=== PATIENT | female | born 1985 | race Caucasian/White ===

== ENCOUNTER 2016-12-09 22:12 | Emergency (ER) | payer MEDICAID ==
[~2016-12-09] VITALS: Ht 175.3 cm; Wt 92.0 kg
[2016-12-09 22:14] VITALS: BP 168/83; PULSE 108; RESP 16; TEMP 99.1; O2SAT 100
[2016-12-09] MEDS ORDERED: SODIUM CHLOR 0.9% 1000 ML INJ 1,000 ML IV ONE ×2 (23:00→23:45)
--- NOTE | 2016-12-09 23:03 | PD ---
HPI Chief Complaint: Abdominal Pain Time Seen by Provider: 22:56 Travel History International Travel<30 days: No Contact w/Intl Traveler<30days: No Traveled to known affect area: No History of Present Illness HPI The patient is a 31 year old female with two prior abortions who presents to the [facility] emergency department with a history of abdominal pain associated with diarrhea that began 3 days ago. The patient reports that she is . She reports that her last menstrual cycle was October 15, 2016. She has an appointment with her new ELECTRONIC NEWS GATHERING EDITOR scheduled for January 04. She reports that she took her first positive test on November 29. The patient reports that she's had N/V x1 today. She reports that she's had diarrhea- tntc. It is yellow in color. She denies having any mucus in her stool or blood in her stool. The patient denies having any known sick contacts. She denies any antibiotic use in the last 3 months. She denies any foreign travel. The patient denies any recent fevers, cough, congestion, neck pain, chest pain, shortness of breath, urinary symptoms, or neurologic symptoms. [facility] Past Medical History Narrative Medical The patient's past medical history is significant for hypertension and asthma. Asthma: Yes Cardiovascular Problems: Yes (HTN) Diminished Hearing: No Hypertension: Yes Respiratory: Yes (ASTHMA) ?: LMP: 10/15/16 Past Surgical History Narrative Surgical The patient's past surgical history is reportedly none. Social History Alcohol Use: No Tobacco Use: No Substance Use: No Allergies-Medications (Allergen,Severity, Reaction): Coded Allergies: No Known Allergies (Unverified , 12/09/16) Reported Meds & Prescriptions Reported Meds & Active Scripts Active No Active Prescriptions or Reported Medications Review of Systems Except as stated in HPI: all other systems reviewed are Neg General / Constitutional: No: Fever Eyes: No: Visual changes HENT: No: Headaches Cardiovascular: No: Chest Pain or Discomfort Respiratory: No: Shortness of Breath Gastrointestinal: Positive: Nausea, Vomiting, Diarrhea, Abdominal Pain, Changes in Bowel Habits, Loss of Appetite, No: Hematemesis, Hematochezia, Indigestion Genitourinary: Positive: Pelvic Pain, No: Dysuria, Discharge, Vaginal Bleeding Musculoskeletal: No: Pain Skin: No Rash Neurologic: No: Weakness Psychiatric: No: Depression Endocrine: No: Polydipsia Hematologic/Lymphatic: No: Easy Bruising Physical Exam Narrative General: The patient is well-developed well-nourished female who is uncomfortable appearing on arrival, holding her lower abdomen. Head and Neck exam: Head is normocephalic atraumatic. Eyes: Pupils are equal round and reactive to light. Nose: Midline septum with pink mucous membranes Mouth: Dentition unremarkable. Moist mucus membranes. Posterior oropharynx is not erythematous. No tonsillar hypertrophy. Uvula midline. Airway patent. Neck: No palpable lymphadenopathy. No nuchal rigidity. No thyromegaly. Cardiovascular: Regular rate and rhythm without murmurs, gallops, or rubs. Lungs: Clear to auscultation bilaterally. No wheezes, rhonchi, or rales. Abdomen: Soft, with tenderness on palpation of the right upper and right lower quadrant of the abdomen. The patient had a positive Bro sign. The patient had normal bowel sounds are audible. The patient denies any tenderness on palpation along the left upper and lower quadrant. Extremities: No clubbing, cyanosis, or edema. 2+ pulses in all 4 extremities. Back: No spinous process tenderness to palpation. No costovertebral angle tenderness to palpation. Neurologic Exam: Grossly nonfocal. Skin Exam: No rash noted. Intact skin that is warm and dry. Gynecologic exam: The patient was placed in the dorsal lithotomy position. Her external genitalia were examined. She had no evidence of rash or lesions. The speculum was placed into her vagina and the cervix was identified. She had a white discharge noted. No cervical friability. On Bimanual exam: she has no cervical motion tenderness. No adnexal tenderness or prominence noted on palpation. No uterine tenderness or enlargement noted on palpation. Data Data Last Documented VS Vital Signs Date Time Temp Pulse Resp B/P Pulse Ox O2 Delivery O2 Flow Rate FiO2 12/09/16 23:14 18 12/09/16 22:14 99.1 108 168/83 100 Orders Beta Hcg (Quant/Titer) (12/09/16 22:58) Complete Blood Count With Diff (12/09/16 22:58) Comprehensive Metabolic Panel (12/09/16 22:58) Gc And Chlamydia Pcr (12/09/16 22:58) Complete Rh (12/09/16 22:58) Wet Prep Profile (12/09/16 22:58) Urinalysis - C+S If Indicated (12/09/16 22:58) Iv Access Insert/Monitor (12/09/16 22:58) Ecg Monitoring (12/09/16 22:58) Ed Urine Pregnancytest Poc (12/09/16 22:58) Sodium Chlor 0.9% 1000 Ml Inj (Ns 1000 M (12/09/16 23:00) Ondansetron Inj (Zofran Inj) (12/09/16 23:45) Sodium Chlor 0.9% 1000 Ml Inj (Ns 1000 M (12/09/16 23:45) Us Abdomen Gallbladder (12/09/16 23:43) Stool Wbc (Leukocytes) (12/10/16 00:31) Enteric Path (Stool) (12/10/16 00:31) C Diff Toxin Pcr (12/10/16 00:31) Ed Poc Ultrasound (12/10/16 01:03) Us Pelvis (Ques Pr/Ect)W Trans (12/10/16 01:10) Morphine Inj (Morphine Inj) (12/10/16 01:30) Ondansetron Inj (Zofran Inj) (12/10/16 01:30) Labs Laboratory Tests Test 12/09/16 12/10/16 12/10/16 23:05 00:45 01:00 White Blood Count 16.3 TH/MM3 Red Blood Count 4.75 MIL/MM3 Hemoglobin 8.3 GM/DL Hematocrit 27.6 % Mean Corpuscular Volume 58.1 FL Mean Corpuscular Hemoglobin 17.4 PG Mean Corpuscular Hemoglobin 30.0 % Concent Red Cell Distribution Width 20.1 % Platelet Count 361 TH/MM3 Mean Platelet Volume 8.6 FL Neutrophils (%) (Auto) 81.4 % Lymphocytes (%) (Auto) 12.5 % Monocytes (%) (Auto) 4.2 % Eosinophils (%) (Auto) 1.3 % Basophils (%) (Auto) 0.6 % Neutrophils # (Auto) 13.2 TH/MM3 Lymphocytes # (Auto) 2.0 TH/MM3 Monocytes # (Auto) 0.7 TH/MM3 Eosinophils # (Auto) 0.2 TH/MM3 Basophils # (Auto) 0.1 TH/MM3 CBC Comment AUTO DIFF Differential Comment AUTO DIFF CONFIRMED Platelet Estimate NORMAL Platelet Morphology Comment NORMAL Basophilic Stippling FAINT Ovalocytes 1+ Acanthocytes OCC Sodium Level 138 MEQ/L Potassium Level 3.4 MEQ/L Chloride Level 105 MEQ/L Carbon Dioxide Level 25.3 MEQ/L Anion Gap 8 MEQ/L Blood Urea Nitrogen 10 MG/DL Creatinine 0.57 MG/DL Estimat Glomerular Filtration 123 ML/MIN Rate Random Glucose 108 MG/DL Calcium Level 8.8 MG/DL Total Bilirubin 0.2 MG/DL Aspartate Amino Transf 12 U/L (AST/SGOT) Alanine Aminotransferase 16 U/L (ALT/SGPT) Alkaline Phosphatase 71 U/L Total Protein 7.4 GM/DL Albumin 3.2 GM/DL Human Chorionic Gonadotropin, 7808 MIU/ML Quant Blood Type A POSITIVE Rho(D) Type POSITIVE Urine Color LIGHT-YELLOW Urine Turbidity CLEAR Urine pH 6.5 Urine Specific [place] 1.012 Urine Protein NEG mg/dL Urine Glucose (UA) NEG mg/dL Urine Ketones NEG mg/dL Urine Occult Blood NEG Urine Nitrite NEG Urine Bilirubin NEG Urine Urobilinogen LESS THAN 2.0 MG/DL Urine Leukocyte Esterase NEG Urine RBC LESS THAN 1 /hpf Urine WBC 1 /hpf Urine Squamous Epithelial 7 /hpf Cells Urine Mucus FEW /lpf Microscopic Urinalysis Comment CULT NOT INDICATED Stool C. difficile Toxin (PCR) NEGATIVE Stl C. difficile Toxin PRESUMPTIVE Epiderm 027 NEGATIVE Chlamydia trachomatis DNA NOT DETECTED (PCR) Neisseria gonorrhoeae DNA NOT DETECTED (PCR) Clue Cells (Wet Prep) PRESENT Vaginal Trichomonas (Wet Prep) NONE SEEN Vaginal Yeast (Wet Prep) NONE SEEN MDM Medical Decision Making Medical Screen Exam Complete: Yes Emergency Medical Condition: Yes Medical Record Reviewed: Yes Interpretation(s) Last Impressions Pelvis Ultrasound 12/10/16 0110 Signed Impressions: Service Date/Time: Saturday, December 10, 2016 02:25 - CONCLUSION: Early intrauterine gestation. Marco Andrews MD Gall Bladder Ultrasound 12/09/16 2343 Signed Impressions: Service Date/Time: Friday, December 09, 2016 23:59 - CONCLUSION: Hepatic steatosis. Otherwise unremarkable Marco Andrews MD Differential Diagnosis Gastroenteritis, versus biliary colic, versus acute cholecystitis, versus pyelonephritis, versus colitis, versus ectopic Narrative Course During the course of the patients emergency department visit, the patients history, examination, and differential diagnosis were reviewed with the patient. The patient had IV access obtained and blood work sent for analysis. The patient's was on a satellite project site monitor with oximetry and blood pressure monitoring. An ultrasound of the pelvis was done by me and no intrauterine was able to be identified. Therefore, an ultrasound by transvaginal route was ordered through the radiology department along with an ultrasound of the right upper quadrant to evaluate the patient's gallbladder. The patient was provided normal saline IV fluids 1 L bolus 2. The patient was given morphine for pain, Zofran for nausea The patients laboratory studies were reviewed and remarkable for white count of 16.3, hemoglobin 8.3, however the patient has a history of anemia with a baseline hemoglobin noted to be similar to this, platelets 361, neutrophils 81.4 , CMP is remarkable for potassium of 3.4, glucose 108, AST 12, albumin 3.2, quantitative beta hCG 7808, urinalysis is within normal limits. Wet prep shows clue cells present. Stool studies were ordered. C. difficile was negative. Gonorrhea and chlamydia were negative. Radiology studies were reviewed and remarkable for an ultrasound of the gallbladder shows no gallbladder abnormality, steatosis noted. An ultrasound of the pelvis reveals a gestational sac, no free fluid, early intrauterine identified at 5 weeks 2 days, slightly rated a 1 cm cystic area that may be a corpus luteum cyst right ovary. No signs of an ectopic . The patient was given a prescription for clindamycin for bacterial vaginosis. The patient was instructed to push fluids and get plenty of rest. The patient was given a prescription for nausea medication. She was instructed to follow- up with an ELECTRONIC NEWS GATHERING EDITOR as soon as possible. The patient is resting comfortably and feels better, is alert and in no distress. The patients results and examination findings were discussed with the patient. The repeat examination is unremarkable and benign. The history, exam, diagnostic testing, and current condition do not suggest any significant pathology to warrant further testing, continued ED treatment, admission, or surgical evaluation at this point. The vital signs have been stable. The patient does not have uncontrollable pain, intractable vomiting, or other significant symptoms. The patient's condition is stable and appropriate for discharge. The patient will pursue further outpatient evaluation with a primary care physician or other designated or consulting physician as indicated in the discharge instructions. The patient expressed understanding and was agreeable with this plan. Procedures Procedure Narrative Emergency Department Pelvic ultrasound was performed with patient consent. The curvilinear probe was used in the transverse and sagittal views within the suprapubic region revealing no obvious intrauterine . Given this and the patient's quantitative beta hCG, a formal ultrasound has been ordered including transvaginal probe. EKG Prior to Arrival: Yes Diagnosis Primary Impression: Abdominal pain affecting Additional Impressions: Bacterial vaginosis Nausea vomiting and diarrhea Referrals: [employer] 3 days Patient Instructions: Abdominal Pain in (ED), Acute Diarrhea (ED), Acute Nausea and Vomiting (ED), Bacterial Vaginosis (ED), General Instructions Additional Instructions: You can take Tylenol as needed for discomfort. Med/Other Pt SpecificInfo: Prescription(s) given Scripts Ondansetron Odt (Zofran Odt)4 Mg Tab4 Mg SL Q6HR PRN (Nausea/Vomiting) #7 TAB Ref 0 Prov:Mayte Washington MD 12/10/16 Clindamycin 300 Mg [id number] Mg PO BID 7 Days Ref 0 Prov:Mayte Washington MD 12/10/16 Disposition: 01 DISCHARGE HOME Condition: Stable Mayte Washington MD Dec 09, 2016 23:03
[2016-12-09 23:22] LABS: AUTOMATED NEUTROPHIL # 13.2 TH/MM3 (1.8-7.7); BASOPHIL # 0.1 TH/MM3 (0-0.2); BASOPHIL % 0.6 % (0.0-2.0); EOSINOPHIL # 0.2 TH/MM3 (0-0.4); EOSINOPHIL % 1.3 % (0.0-4.0); HEMATOCRIT 27.6 % (35.0-46.0); LYMPH % 12.5 % (9.0-44.0); MEAN CELL VOLUME 58.1 FL (80.0-100.0); MEAN CORPUSCULAR HEMOGLOBIN 17.4 PG (27.0-34.0); MONO % 4.2 % (0.0-8.0); NEUT % 81.4 % (16.0-70.0); PLATELET COUNT 361 TH/MM3 (150-450); RED BLOOD COUNT 4.75 MIL/MM3 (4.00-5.30); RED CELL DISTRIBUTION WIDTH 20.1 % (11.6-17.2); WHITE BLOOD COUNT 16.3 TH/MM3 (4.0-11.0)
[2016-12-09 23:27] LABS: HEMO FLAGS AUTO DIFF
[2016-12-09 23:33] LABS: ALT (GPT) 16 U/L (10-53); ANION GAP 8 MEQ/L (5-15); AST (GOT) 12 U/L (15-37); BICARBONATE 25.3 MEQ/L (21.0-32.0); BLOOD UREA NITROGEN 10 MG/DL (7-18); CHLORIDE 105 MEQ/L (98-107); GLOMERULAR FILTRATION RATE 123 ML/MIN (>89); POTASSIUM 3.4 MEQ/L (3.5-5.1); SODIUM (NA) 138 MEQ/L (136-145)
[2016-12-09] MEDS ORDERED: ONDANSETRON HCL 4 MG/2 ML VIAL IV ONE (23:45)
[2016-12-09 23:50] LABS: ALKALINE PHOSPHATASE 71 U/L (45-117); BETA HCG QUANT 7808 MIU/ML (0-5); TOTAL BILIRUBIN ADULT 0.2 MG/DL (0.2-1.0)
[2016-12-09 23:54] LABS: ACANTHOCYTES OCC (NORMAL); OVALOCYTES 1+ (NORMAL); PLATELET ESTIMATE SMEAR NORMAL (NORMAL); PLATELET MORPHOLOGY NORMAL (NORMAL); SCAN/DIFF AUTO DIFF CONFIRMED
--- NOTE | 2016-12-10 00:19 | RADRPT ---
EXAM DATE/TIME: 12/09/2016 23:59 [facility] COMPARISON: No previous studies available for comparison. INDICATIONS : Right upper quadrant pain. MEDICAL HISTORY : Hypertension. . Asthma. SURGICAL HISTORY : None. ENCOUNTER: Initial ACUITY: 3 days PAIN SCORE: 9/10 LOCATION: Right upper quadrant MEASUREMENTS: LIVER: 18.4 cm length COMMON DUCT: 3 mm RIGHT KIDNEY: 12.9 x 6.1 x 6.3 cm FINDINGS: LIVER: Steatosis. No focal mass or biliary ductal dilatation. COMMON DUCT: No intraluminal mass or stone visualized. GALLBLADDER: Contains no stones, demonstrates no wall thickening or pericholecystic fluid. PANCREAS: The visualized portions are within normal limits. RIGHT KIDNEY: No evidence of hydronephrosis, stone, or mass. CONCLUSION: Hepatic steatosis. Otherwise unremarkable Marco Andrews MD on December 10, 2016 at 0:17 Board Certified Radiologist. This report was verified electronically.
[2016-12-10 01:03] LABS: BLOOD, URINE NEG (NEG); COMMENT (UR) CULT NOT INDICATED; CULTURE IF INDICATED CULT NOT INDICATED; GLUCOSE,URINE NEG (NEG); KETONE, URINE NEG (NEG); MUCUS URINE FEW /lpf (OCC); NITRITE,URINE NEG (NEG); PH, URINE 6.5 (5.0-8.5); SQUAMOUS EPITHELIAL CELL URINE 7 /hpf (0-5); URINE COLOR LIGHT-YELLOW (YELLW/STRAW)
[2016-12-10] MEDS ORDERED: ONDANSETRON HCL 4 MG/2 ML VIAL IV PUSH ONE (01:30)
[2016-12-10] MEDS ORDERED: MORPHINE SULFATE 4 MG/ML INJ IV PUSH ONE (01:30)
[2016-12-10 01:57] LABS: C. DIFF EPI 027 PRESUMPTIVE NEGATIVE (NEGATIVE); C. DIFF TOXIN PCR NEGATIVE (NEGATIVE)
[2016-12-10 02:42] LABS: CHLAMYDIA PCR NOT DETECTED (NOT DETECT); NEISSERIA PCR NOT DETECTED (NOT DETECT)
--- NOTE | 2016-12-10 03:04 | RADRPT ---
EXAM DATE/TIME: 12/10/2016 02:25 [facility] COMPARISON: No previous studies available for comparison. INDICATIONS : Pelvic pain. LAB(S): Beta-hC MEDICAL HISTORY : . Hypertension. SURGICAL HISTORY : None. ENCOUNTER: Initial ACUITY: 1 day PAIN SCORE: 2/10 LOCATION: Right pelvis MEASUREMENTS: LEFT OVARY: 2.9 x 2.0 x 2.3 cm UTERUS: 11.2 x 7.0 x 7.2 cm ENDOMETRIAL STRIPE: >20 mm RIGHT OVARY: 3.3 x 3.1 x 3.3 cm FINDINGS: UTERUS: An intrauterine gestation is present with average estimated gestational sac diameter of 12.1 mm yield ing estimated gestational age of 5 weeks 2 days. No defined internal architecture is present. Specifi kel, no yolk sac or pole. RIGHT OVARY: Slightly greater than 1 cm cystic area may be corpus luteum LEFT OVARY: Ovary contains no mass or significant cystic lesion. MISCELLANEOUS: No free fluid. CONCLUSION: Early intrauterine gestation. Marco Andrews MD on December 10, 2016 at 3:00 Board Certified Radiologist. This report was verified electronically.
[2016-12-10] MEDS ORDERED: CLIN1CAP6 PO (03:29)
[2016-12-10] MEDS ORDERED: ZOFR4TAB3 SL (03:35)
== END 2016-12-10 03:58 | disposition home or self-care (01) ==
LOC: NEPC 22:12
DX: O26.891 Other specified pregnancy related conditions, first trimester (principal); R10.9 Unspecified abdominal pain; R19.7 Diarrhea, unspecified; O23.591 Infection of other part of genital tract in pregnancy, first trimester; O21.9 Vomiting of pregnancy, unspecified; I10 Essential (primary) hypertension; Z87.09 Personal history of other diseases of the respiratory system; Z3A.01 Less than 8 weeks gestation of pregnancy
CPT/HCPCS: 76700; 76705; 76817; 80053; 81001; 84702; 84703; 85025; 86901; 87205; 87210; 87491; 87493; 87506; 87591; 96361; 96374; 96375; 96376; 99284; J2270; J2405; J7030

== ENCOUNTER 2017-01-18 10:11 | Observation (INO) | payer MEDICAID ==
[~2017-01-18] VITALS: Ht 172.7 cm; Wt 100.0 kg
[2017-01-18 10:11] VITALS: BP 130/88; PULSE 97; RESP 20; TEMP 98.3; O2SAT 97
[~2017-01-18 10:11] MED LIST: CLIN1CAP6 PO; ZOFR4TAB3 SL
[2017-01-18] MEDS ORDERED: DOXY10TA PO (10:21)
[2017-01-18 10:43] LABS: MEAN CORPUSCULAR HGB CONC 29.9 % (32.0-36.0)
[2017-01-18] MEDS ORDERED: SODIUM CHLOR 0.9% 1000 ML INJ 1,000 ML IV ONE (10:45)
[2017-01-18] MEDS ORDERED: ONDANSETRON HCL 4 MG/2 ML VIAL IV PUSH ONE (10:45)
[2017-01-18] MEDS ORDERED: ACETAMINOPHEN 325 MG TAB PO ONE (10:45)
[2017-01-18 11:06] LABS: AUTOMATED NEUTROPHIL # 12.1 TH/MM3 (1.8-7.7); BASOPHIL # 0.1 TH/MM3 (0-0.2); BASOPHIL % 0.4 % (0.0-2.0); EOSINOPHIL # 0.1 TH/MM3 (0-0.4); EOSINOPHIL % 0.8 % (0.0-4.0); HEMATOCRIT 28.2 % (35.0-46.0); LYMPH % 9.8 % (9.0-44.0); LYMPHOCYTE # 1.4 TH/MM3 (1.0-4.8); MEAN CELL VOLUME 58.8 FL (80.0-100.0); MEAN CORPUSCULAR HEMOGLOBIN 17.6 PG (27.0-34.0); MONO % 4.3 % (0.0-8.0); NEUT % 84.7 % (16.0-70.0); PLATELET COUNT 305 TH/MM3 (150-450); RED CELL DISTRIBUTION WIDTH 20.7 % (11.6-17.2); WHITE BLOOD COUNT 14.3 TH/MM3 (4.0-11.0)
[2017-01-18 11:08] LABS: HEMO FLAGS AUTO DIFF
[2017-01-18 11:11] LABS: APTT (PATIENT) 22.6 SEC (24.3-30.1); PROTHROMBIN TIME - PATIENT 10.7 SEC (9.8-11.6)
[2017-01-18 11:12] LABS: BACTERIA, URINE OCC /hpf; BLOOD, URINE NEG (NEG); COMMENT (UR) CULT NOT INDICATED; CULTURE IF INDICATED CULT NOT INDICATED; GLUCOSE,URINE NEG (NEG); KETONE, URINE 10 mg/dL (NEG); MUCUS URINE FEW /lpf (OCC); NITRITE,URINE NEG (NEG); SQUAMOUS EPITHELIAL CELL URINE 9 /hpf (0-5); TRANSITIONAL EPI CELLS, URINE <1 /hpf; URINE COLOR YELLOW (YELLW/STRAW)
[2017-01-18 11:29] LABS: ALT (GPT) 17 U/L (10-53); ANION GAP 9 MEQ/L (5-15); AST (GOT) 16 U/L (15-37); BICARBONATE 23.9 MEQ/L (21.0-32.0); BLOOD UREA NITROGEN 7 MG/DL (7-18); CHLORIDE 104 MEQ/L (98-107); GLOMERULAR FILTRATION RATE 166 ML/MIN (>89); POTASSIUM 3.8 MEQ/L (3.5-5.1); SODIUM (NA) 137 MEQ/L (136-145)
[2017-01-18] MEDS ORDERED: PROPOFOL 200 MG/20 ML AMP IV ONE (11:29)
[2017-01-18 11:31] LABS: ALKALINE PHOSPHATASE 60 U/L (45-117); TOTAL BILIRUBIN ADULT 0.3 MG/DL (0.2-1.0)
[2017-01-18] MEDS ORDERED: ePHEDrine/NS 25 MG/5 ML SYR IV ONE (11:31)
[2017-01-18] MEDS ORDERED: NEOSTIGMINE 3 MG/3 ML SYR IV ONE (11:32)
[2017-01-18] MEDS ORDERED: NORMOSOL R INJ 1,000 ML IV ONE (11:32)
[2017-01-18 11:44] LABS: OVALOCYTES 1+ (NORMAL); SCAN/DIFF AUTO DIFF CONFIRMED
[2017-01-18 12:00] VITALS: BP 117/62; PULSE 80; RESP 16; O2SAT 98
--- NOTE | 2017-01-18 12:25 | RADRPT ---
EXAM DATE/TIME: 01/18/2017 11:23 [facility] COMPARISON: No previous studies available for comparison. INDICATIONS : Right lower quadrant pain. Rule out appendicitis. MEDICAL HISTORY : Hypertension. . Asthma. SURGICAL HISTORY : None. ENCOUNTER: Initial ACUITY: 1 day PAIN SCORE: 10/10 LOCATION: Right lower quadrant AREA EVALUATED: Right lower quadrant. FINDINGS: Right lower quadrant abdominal ultrasound was performed. Appendix not identified. CONCLUSION: Appendix not identified. Mohamud Paul MD on January 18, 2017 at 12:20 Board Certified Radiologist. This report was verified electronically.
[2017-01-18 14:00] VITALS: BP 116/71; PULSE 89; RESP 20; O2SAT 98
--- NOTE | 2017-01-18 14:09 | RADRPT ---
EXAM DATE/TIME: 01/18/2017 12:42 This report includes an Addendum and supersedes previous reports for this exam. [facility] COMPARISON: No previous studies available for comparison. INDICATIONS : Abdominal pain. 13 wekks . MEDICAL HISTORY : Hypertension. SURGICAL HISTORY : None. ENCOUNTER: Initial ACUITY: 1 day PAIN SCORE: 2/10 LOCATION: Right lower quadrant TECHNIQUE: Multiplanar, multisequence magnetic resonance imaging of the abdomen was performed without contrast. FINDINGS: LIVER: Normal size with normal signal intensity. No lesion is identified. Portal vein is within normal limi ts. BILIARY: There is no intra- or extra-hepatic biliary ductal dilatation. Gallbladder contains no stones. SPLEEN: Within normal limits. PANCREAS: Within normal limits. ADRENALS: Within normal limits. KIDNEYS: 1.3 cm right renal cyst. Normal size and signal intensity. There is no hydronephrosis or mass. OTHER: Likely appendix is identified in the right lower quadrant with normal diameter and no surrounding inf lammatory changes. is identified in the uterus. No enlarged lymph nodes. CONCLUSION: 1. Likely appendix identified and within normal limits. 2. No acute findings identified. Mohamud Paul MD on January 18, 2017 at 13:54 Board Certified Radiologist. This report was verified electronically. ADDENDUM: Patient returned for additional fat-suppressed sagittal and coronal imaging. The appendix is identifi ed posterior to the cecum on the additional sagittal images. No periappendiceal inflammatory changes identified., However there is questionable wall thickening and it is borderline in size measuring 7 m m in diameter. Therefore although there are no definitive findings for appendicitis, early appendici tis cannot be excluded. If symptoms persist, repeat imaging could be performed. Mohamud Paul MD on January 18, 2017 at 15:36 Board Certified Radiologist. This report was verified electronically.
[2017-01-18] MEDS ORDERED: MACR100C2 PO (15:21)
--- NOTE | 2017-01-18 15:21 | PD ---
HPI Chief Complaint: GI Complaint Time Seen by Provider: 10:25 Travel History International Travel<30 days: No Contact w/Intl Traveler<30days: No Traveled to known affect area: No History of Present Illness HPI Patient is a 31-year-old female who is approximately 13 weeks , who comes in complaining of right lower quadrant abdominal pain. She says it started earlier this morning, around 4 AM. She reports an episode of vomiting as well as diarrhea. She has not had any fever or chills. She denies any dysuria. She denies any vaginal discharge or vaginal bleeding. She was here about one month ago for similar symptoms. [facility] Past Medical History Asthma: Yes Cardiovascular Problems: Yes (HTN) Diminished Hearing: No Hypertension: Yes Respiratory: Yes (ASTHMA) ?: LMP: 09/2016 : 6 Para: 3 Miscarriage: 0 : 2 Past Surgical History Surgical History: No Previous Surgery Social History Alcohol Use: No Tobacco Use: No Substance Use: No Allergies-Medications (Allergen,Severity, Reaction): Coded Allergies: No Known Allergies (Unverified , 12/09/16) Reported Meds & Prescriptions Reported Meds & Active Scripts Active Macrobid (Nitrofurantoin Monoh/Nitrofur Macro) 100 Mg Cap 100 Mg PO BID 7 Days Reported Diclegis (Doxylamine-Pyridoxine) 10-10 Mg Tab 1 Tab PO DAILY Review of Systems Except as stated in HPI: all other systems reviewed are Neg General / Constitutional: No: Fever, Chills Eyes: No: Blurred Vision HENT: No: Headaches, Lightheadedness Cardiovascular: No: Chest Pain or Discomfort Respiratory: No: Shortness of Breath Gastrointestinal: Positive: Nausea, Vomiting, Diarrhea, Abdominal Pain Genitourinary: No: Dysuria, Discharge, Vaginal Bleeding Skin: No Rash, No Change in Pigmentation Neurologic: No: Weakness, Dizziness Physical Exam Narrative GENERAL: Awake and alert, in no acute distress. SKIN: Warm and dry. HEAD: Atraumatic. Normocephalic. EYES: Pupils equal and round. No scleral icterus. ENT: No nasal bleeding or discharge. Mucous membranes pink and moist. NECK: Trachea midline. No JVD. CARDIOVASCULAR: Regular rate and rhythm. No murmur appreciated. RESPIRATORY: No accessory muscle use. Clear to auscultation. Breath sounds equal bilaterally. GASTROINTESTINAL: Abdomen soft, nondistended. Tender to palpation of the right lower quadrant with rebound tenderness.. No CVA tenderness. MUSCULOSKELETAL: No obvious deformities. No clubbing. No cyanosis. No edema. NEUROLOGICAL: Awake and alert. No obvious cranial nerve deficits. Motor grossly within normal limits. Normal speech. PSYCHIATRIC: Appropriate mood and affect; insight and judgment normal. Data Data Last Documented VS Vital Signs Date Time Temp Pulse Resp B/P Pulse Ox O2 Delivery O2 Flow Rate FiO2 01/18/17 16:00 79 20 127/96 99 Room Air 01/18/17 10:11 98.3 Orders Ed Poc Ultrasound (01/18/17 ) Complete Blood Count With Diff (01/18/17 10:40) Comprehensive Metabolic Panel (01/18/17 10:40) Act Partial Throm Time (Ptt) (01/18/17 10:40) Prothrombin Time / Inr (Pt) (01/18/17 10:40) Urinalysis - C+S If Indicated (01/18/17 10:40) Ed Urine Pregnancytest Poc (01/18/17 10:40) Mri Abdomen W/O Contrast (01/18/17 ) Sodium Chlor 0.9% 1000 Ml Inj (Ns 1000 M (01/18/17 10:45) Ondansetron Inj (Zofran Inj) (01/18/17 10:45) Acetaminophen (Tylenol) (01/18/17 10:45) Us Abdomen Lower Limited (01/18/17 ) Admit Order (Ed Use Only) (01/18/17 ) Cefoxitin Inj (Mefoxin Inj) (01/18/17 16:45) Labs Laboratory Tests Test 01/18/17 01/18/17 10:40 10:49 White Blood Count 14.3 TH/MM3 Red Blood Count 4.80 MIL/MM3 Hemoglobin 8.4 GM/DL Hematocrit 28.2 % Mean Corpuscular Volume 58.8 FL Mean Corpuscular Hemoglobin 17.6 PG Mean Corpuscular Hemoglobin 29.9 % Concent Red Cell Distribution Width 20.7 % Platelet Count 305 TH/MM3 Mean Platelet Volume 8.8 FL Neutrophils (%) (Auto) 84.7 % Lymphocytes (%) (Auto) 9.8 % Monocytes (%) (Auto) 4.3 % Eosinophils (%) (Auto) 0.8 % Basophils (%) (Auto) 0.4 % Neutrophils # (Auto) 12.1 TH/MM3 Lymphocytes # (Auto) 1.4 TH/MM3 Monocytes # (Auto) 0.6 TH/MM3 Eosinophils # (Auto) 0.1 TH/MM3 Basophils # (Auto) 0.1 TH/MM3 CBC Comment AUTO DIFF Differential Comment AUTO DIFF CONFIRMED Ovalocytes 1+ Prothrombin Time 10.7 SEC Prothromb Time International 1.0 RATIO Ratio Activated Partial 22.6 SEC Thromboplast Time Sodium Level 137 MEQ/L Potassium Level 3.8 MEQ/L Chloride Level 104 MEQ/L Carbon Dioxide Level 23.9 MEQ/L Anion Gap 9 MEQ/L Blood Urea Nitrogen 7 MG/DL Creatinine 0.44 MG/DL Estimat Glomerular Filtration 166 ML/MIN Rate Random Glucose 91 MG/DL Calcium Level 8.6 MG/DL Total Bilirubin 0.3 MG/DL Aspartate Amino Transf 16 U/L (AST/SGOT) Alanine Aminotransferase 17 U/L (ALT/SGPT) Alkaline Phosphatase 60 U/L Total Protein 7.2 GM/DL Albumin 2.9 GM/DL Urine Color YELLOW Urine Turbidity HAZY Urine pH 6.0 Urine Specific [place] 1.021 Urine Protein TRACE mg/dL Urine Glucose (UA) NEG mg/dL Urine Ketones 10 mg/dL Urine Occult Blood NEG Urine Nitrite NEG Urine Bilirubin NEG Urine Urobilinogen LESS THAN 2.0 MG/DL Urine Leukocyte Esterase NEG Urine RBC LESS THAN 1 /hpf Urine WBC 2 /hpf Urine Squamous Epithelial 9 /hpf Cells Urine Transitional Epithelial <1 /hpf Cells Urine Bacteria OCC /hpf Urine Mucus FEW /lpf Microscopic Urinalysis Comment CULT NOT INDICATED MDM Medical Decision Making Medical Screen Exam Complete: Yes Emergency Medical Condition: Yes Medical Record Reviewed: Yes Differential Diagnosis Appendicitis versus UTI versus pyelonephritis Narrative Course Patient is a 31-year-old female comes in complaining of abdominal pain. Exam shows right lower quadrant tenderness. Bedside ultrasound shows IUP, no free fluid in the pelvis. IV established, labs sent. Labs show a white blood cell count of 14.3, which is lower than previous white blood cell count of 16.3. Hemoglobin is 8.4, which is similar to previous hemoglobins. Urine is positive for bacteria. Patient given IV fluids, Zofran, Tylenol. Ultrasounds of the right lower quadrant is unable to identify the appendix. MRI performed originally read as no evidence of appendicitis. However about an hour later, while patient was finishing her IV fluids, I received a phone call from the radiologist saying they were concerned because of thickening seen on the MRI around the appendix. Patient continues to have right lower quadrant pain with rebound pain on palpation of the left side of the abdomen. Dr. Hilda Zamorano from surgery consult it, and will take the patient to the OR for appendectomy. Patient given a dose of Mefoxin. Procedures Procedure Narrative Emergency Department Pelvic ultrasound was performed with patient consent. The curvilinear probe was used in the transverse and sagittal views within the suprapubic region revealing single intrauterine . heart rate was 174. No free fluid in the pelvis. Diagnosis Primary Impression: Acute appendicitis affecting Admitting Information Admitting Physician Requests: Admit Patient Instructions: General Instructions Additional Instructions: Follow up with your OB. Make sure you take all of your antibiotic. Increase your fluid intake. Return to the ED as needed for any worsening symptoms. Condition: Stable June Jefferson MD Jan 18, 2017 15:21
[2017-01-18 16:00] VITALS: BP 127/96; PULSE 79; RESP 20; O2SAT 99
[2017-01-18] MEDS ORDERED: ceFOXitin INJ 2 GM in SODIUM CHLORIDE 0.9% INJ 100 ML IV ONE (16:45)
[2017-01-18] MEDS ORDERED: ACETAMINOPHEN 1000 MG/100 ML VIAL IV ONE (16:49)
[2017-01-18] MEDS ORDERED: fentaNYL CITRATE 250 MCG/5 ML AMP ONE (16:49)
[2017-01-18] MEDS ORDERED: BUPIVACAINE/EPINEPHRINE 0.25% PF 30 ML VIAL ONE (16:59)
[2017-01-18] MEDS ORDERED: SODIUM CHLOR 0.9% 1000 ML INJ 1,000 ML IV SCH (18:40)
[2017-01-18] MEDS ORDERED: ACETAMINOPHEN 325 MG TAB PO PRN (18:45)
[2017-01-18] MEDS ORDERED: MAGNESIUM HYDROXIDE SUSP 30 ML CUP PO PRN (18:45)
[2017-01-18] MEDS ORDERED: MORPHINE SULFATE 4 MG/ML INJ IV PRN (18:45)
[2017-01-18] MEDS ORDERED: Post-op Orders (for Pharmacy) MISC XX ONE (18:45)
[2017-01-18] MEDS ORDERED: oxyCODONE/ACETAMINOPHEN 5 MG/325 MG TAB PO PRN ×2 (18:45)
[2017-01-18] MEDS ORDERED: diphenhydrAMINE HCL 25 MG CAP PO PRN (18:45)
[2017-01-18] MEDS ORDERED: SODIUM CHLORIDE 0.9% FLUSH 5 ML FLUSH IVF PRN (18:45)
--- NOTE | 2017-01-18 18:49 | HHI.PR ---
Immediate Post Op Note Procedure Date: Jan 18, 2017 Pre Op Diagnosis: (1) Abdominal pain affecting (2) Acute appendicitis affecting Post Op Diagnosis: (1) Abdominal pain affecting (2) Acute appendicitis affecting Surgeon: Deacon Parks Wind Project Manager(s): none Procedure: laparoscopic appendectomy Findings: acute uncomplicated appendicitis Complications: none Specimen(s) removed: appendix Estimated blood loss: 10ml Anesthesia: General Drains: None IVF Patient to: PACU Patient Condition: Good Deacon Parks MD Jan 18, 2017 18:49
[2017-01-18] MEDS ORDERED: *MEPERIDINE 25 MG INJ VIAL PERIprocedural Use ONLY ONE (19:14)
[2017-01-18] MEDS ORDERED: *morphine SULFATE 8 MG/ML PERIprocedure ONLY ONE (19:14)
[2017-01-18] MEDS ORDERED: DO NOT ADM ANY ANTICOAGULANT DRUGS XX PRN (19:15)
[2017-01-18] MEDS: ONDANSETRON HCL 4 MG/2 ML VIAL IV PRN (19:20)
[2017-01-18 20:00] VITALS: BP 125/61; PULSE 75; RESP 20; TEMP 98.5; O2SAT 91
--- NOTE | 2017-01-18 22:47 | MP ---
cc: JANAE LEE DATE OF SURGERY 01/18/17 PREOPERATIVE DIAGNOSIS 1. Acute appendicitis. 2. POSTOPERATIVE DIAGNOSIS 1. Acute uncomplicated appendicitis 2. PROCEDURE Laparoscopic appendectomy. ATTENDING PHYSICIAN Edith Lee. ARCGIS DEVELOPER None. ANESTHESIA General. ESTIMATED BLOOD LOSS 10 mL COMPLICATIONS None FINDINGS Acute suppurative appendicitis without evidence of perforation. No other intra-abdominal pathology and a gravid uterus consistent with between 10 and 15 weeks of based on this size. INDICATIONS FOR PROCEDURE The patient is a 31-year-old female with sudden onset of severe right lower quadrant pain, nausea, vomiting and diarrhea early this morning. The patient had worsening pain throughout the day and presented to the emergency department. Due to the patient's and concern for appendicitis, the patient underwent an MRI which could be consistent with early appendicitis but no definitive diagnosis was obtained from this. The patient did have persistent right lower quadrant rebound tenderness as well as an elevated white blood cell count. After discussion with the patient and her about the options including observation, antibiotics and appendectomy, the patient initially chose to be managed with laparoscopic appendectomy for possible appendicitis. Risks, benefits, alternatives were explained to the patient and her family. PROCEDURE IN DETAIL After full consent was obtained, the patient was taken to the operating room, placed in a supine position and placed under endotracheal anesthesia. The patient's abdomen was prepped and draped in a sterile fashion. Time-out was performed. The abdomen was entered through a Cummins direct entry technique through a curvilinear incision just below the umbilicus. We spread open the midline fascia with the scalpel under direct visualization and placed a 10-mm balloon trocar into the abdomen under direct visualization. We insufflated the abdomen and placed a 5 mm 30 degree camera into the abdomen and surveyed the abdomen. There was no evidence of any complication from our entry and uterus was well below the umbilicus and our entry site. There was no other syndrome or pathology other than some inflammatory fluid in the right pericolic gutter as well as a gravid uterus. We placed a 5-mm port below the umbilicus three fingerbreadths still at the level above the fundus of the uterus and a second 5-mm port in the right lower quadrant laterally about the level of the umbilicus. These were placed under direct visualization with the laparoscope. At this point in time we were able to easily locate the right colon and the tinea over the cecum. We grasped this and retracted upward and there was a retrocecal appendix that was not enlarged but significantly injected and erythematous with some purulent material superimposed on this. This was consistent with acute appendicitis clinically. We were able to use the laparoscopic [place] to retract the appendix up into our operative field. We made a window at the base of the appendix and divided the base of the appendix with the white load on the echelon GI laparoscopic stapler. We divided the appendiceal mesentery with a rivera load on the echelon stapler. Appendix was removed from the abdomen through the periumbilical Cummins port within an EndoCatch bag. We did suction out a small amount of inflammatory fluid. The staple line was intact and no evidence of any bleeding or any staple line leak or any complication. We then removed ports under visualization of the laparoscope and expressed pneumoperitoneum. We closed the fascia of the midline 10 mm Cummins port with a [id number] 0 Vicryl suture. Skin was closed with 4-0 Monocryl and Dermabond. The patient was discontinued from anesthesia, taken to PACU in stable condition. The patient tolerated procedure well. No apparent complications. All counts were correct. I was present and scrubbed for the entire procedure. MD CONG Carlson/ /10:12 PM /10:28 PM
[2017-01-18] MEDS: SODIUM CHLORIDE 0.9% FLUSH 5 ML FLUSH IVF SCH (23:12)
[2017-01-19] VITALS: BP 122/65; PULSE 94; RESP 20; TEMP 97.7; O2SAT 97
[2017-01-19] MEDS: ONDANSETRON HCL 4 MG/2 ML VIAL IV PRN (00:15)
--- NOTE | 2017-01-19 04:13 | MH ---
cc: JANAE LEE DATE OF ADMISSION: 01/18/2017 ADMITTING DIAGNOSIS: CHIEF COMPLAINT Right lower quadrant pain. HISTORY OF PRESENT ILLNESS: The patient is a 31 year-old female who presented to the emergency department with sudden onset of right lower quadrant pain. The patient is 13 weeks , uncomplicated , when she developed the sudden onset of right lower quadrant pain with nausea, vomiting, diarrhea at 4 a.m. this morning. The patient states it continued to get worse throughout the day and she has never had a pain like this prior. There is no radiation and the pain is not made worse or better by any aggravating or relieving factor. The patient has no vaginal bleeding or discharge. No fevers, chills or night sweats. No hematemesis or hematochezia. The patient denies any chest pain, shortness of breath, neurologic changes or any sick contacts. The patient underwent a workup in the emergency department and was found to have elevated leukocytosis, significant pain in the right lower quadrant on physical examination. An MRI and ultrasound were concerning for possible early appendicitis though these were inconclusive. General surgery was asked to evaluate the patient for possible appendicitis. REVIEW OF SYSTEMS 12-point review of systems is conducted with the patient and is negative except for the pertinent positives mentioned above in the history of present illness. PAST MEDICAL HISTORY: 1. Hypertension. 2. Asthma. 3. Current as above. PAST SURGICAL HISTORY: None. SOCIAL HISTORY: The patient denies alcohol, tobacco or illicit drug use. ALLERGIES: NO KNOWN DRUG ALLERGIES. MEDICATIONS: Diclegis daily. FAMILY HISTORY Noncontributory. PHYSICAL EXAMINATION Vital signs: Temperature 98.3 degrees, pulse 89, respiratory rate 20, blood pressure 116/71, O2 saturation 98%. The patient is a well-developed, well-nourished, female in no acute distress. She does not appear acute or clinically ill. Head: Normocephalic, atraumatic. Pupils round, reactive to light. Sclerae is anicteric. Mucous membranes are moist. Neck: Supple. No JVD. Lungs: Clear to auscultation bilaterally. Heart: Regular rate and rhythm. No murmurs. Abdomen: Soft, significant tenderness with focal rebound tenderness in the right lower quadrant. There is no diffuse rebound tenderness, no diffuse tenderness. The uterus is palpable above the pubis but not to the level of the umbilicus. Extremities: No clubbing, cyanosis or edema. Back: No CVA tenderness. Neurologic: The patient is awake, alert, appropriate, oriented x3. Moving all extremities, nonfocal. Cranial nerves II-XII grossly intact. ASSESSMENT/PLAN: The patient is a 31-year-old female with right lower quadrant pain, focal peritonitis, an elevated white blood cell count. Imaging is inconclusive. Clinically the patient is very concerning for early appendicitis. I discussed this with the patient and the patient's . I recommended we do proceed to the operating room with laparoscopic appendectomy. In the setting of , advanced appendicitis is high-risk of loss, however, relatively to uncomplicated appendicitis, caught early and treated laparoscopic appendectomy has a relatively low incidence of intrauterine loss. I did give them the options of continued observation with and without antibiotics as well as laparoscopic appendectomy. I discussed the risks, benefits and alternatives to each approach. The family and the patient wish to proceed with laparoscopic appendectomy as soon as possible. Of note, the patient did have a few small crackers earlier while in the emergency department, although no significant food intake. Discussion was held about the patient potentially having increased risk of aspiration due to having food in her stomach, however, the patient wished to continue with operation urgently due to concern of worsening appendicitis and possibility of loss. Will proceed with laparoscopic appendectomy pending on operating room availability. MD CONG Carlson/CHRISTOPHE /11:12 PM /3:43 AM
[2017-01-19] MEDS: SODIUM CHLORIDE 0.9% FLUSH 5 ML FLUSH IVF SCH (07:16)
--- NOTE | 2017-01-19 07:58 | HHI.PR ---
Subjective Subjective Notes pain ok Objective Vitals/I&O Vital Signs Date Time Temp Pulse Resp B/P Pulse Ox O2 Delivery O2 Flow Rate FiO2 01/19/17 00:00 97.7 94 20 122/65 97 01/18/17 20:15 Room Air 01/18/17 19:15 2 Labs Laboratory Tests Test 01/18/17 01/18/17 10:40 10:49 White Blood Count 14.3 Red Blood Count 4.80 Hemoglobin 8.4 Hematocrit 28.2 Mean Corpuscular Volume 58.8 Mean Corpuscular Hemoglobin 17.6 Mean Corpuscular Hemoglobin 29.9 Concent Red Cell Distribution Width 20.7 Platelet Count 305 Mean Platelet Volume 8.8 Neutrophils (%) (Auto) 84.7 Lymphocytes (%) (Auto) 9.8 Monocytes (%) (Auto) 4.3 Eosinophils (%) (Auto) 0.8 Basophils (%) (Auto) 0.4 Neutrophils # (Auto) 12.1 Lymphocytes # (Auto) 1.4 Monocytes # (Auto) 0.6 Eosinophils # (Auto) 0.1 Basophils # (Auto) 0.1 CBC Comment AUTO DIFF Differential Comment AUTO DIFF CONFIRMED Ovalocytes 1+ Prothrombin Time 10.7 Prothromb Time International 1.0 Ratio Activated Partial 22.6 Thromboplast Time Sodium Level 137 Potassium Level 3.8 Chloride Level 104 Carbon Dioxide Level 23.9 Anion Gap 9 Blood Urea Nitrogen 7 Creatinine 0.44 Estimat Glomerular Filtration 166 Rate Random Glucose 91 Calcium Level 8.6 Total Bilirubin 0.3 Aspartate Amino Transf 16 (AST/SGOT) Alanine Aminotransferase 17 (ALT/SGPT) Alkaline Phosphatase 60 Total Protein 7.2 Albumin 2.9 Urine Color YELLOW Urine Turbidity HAZY Urine pH 6.0 Urine Specific [place] 1.021 Urine Protein TRACE Urine Glucose (UA) NEG Urine Ketones 10 Urine Occult Blood NEG Urine Nitrite NEG Urine Bilirubin NEG Urine Urobilinogen LESS THAN 2.0 Urine Leukocyte Esterase NEG Urine RBC LESS THAN 1 Urine WBC 2 Urine Squamous Epithelial 9 Cells Urine Transitional Epithelial <1 Cells Urine Bacteria OCC Urine Mucus FEW Microscopic Urinalysis Comment CULT NOT INDICATED Cardiovascular: Regular Lungs: Clear Abdomen: Non-distended, Post-op tenderness Extremities: No edema, Perfused, SCD's on Narrative Exam incisions c/d/i A/P Assessment and Plan 31yo female 13weeks s/p lap appy, stable. - pain ok - tolerating PO - OOB - will check hear tones prior to DC - likely DC home later today Deacon Parks MD Jan 19, 2017 07:58
[2017-01-19 08:00] VITALS: BP 118/62; PULSE 89; RESP 17; TEMP 98.3; O2SAT 95
[2017-01-19 10:20] VITALS: O2SAT 99
[2017-01-19 12:00] VITALS: BP 116/57; PULSE 86; RESP 17; TEMP 99.1; O2SAT 91
--- NOTE | 2017-01-19 13:10 | PD.CONS ---
History & Physical H&P Patient sent over from floor to document FHTs US done by myself on L&D-- 11 wk 3 d IUP + CM rate 120 , fetus active Aristides Dubois II, MD Jan 19, 2017 13:10
== END 2017-01-19 14:22 | disposition home or self-care (01) ==
LOC: NEPA 10:11 → NEDA 16:44 → INTOOBSV 16:44 → N07A 20:38 → UNDODISIN 01-19 14:22
PROVIDERS: ADMIT Surgery; ATTEND Surgery
DX: K35.80 Unspecified acute appendicitis (principal); K65.9 Peritonitis, unspecified; O99.611 Diseases of the digestive system complicating pregnancy, first trimester; Z3A.13 13 weeks gestation of pregnancy; J45.909 Unspecified asthma, uncomplicated
CPT/HCPCS: 00840; 44970; 74181; 76705; 76801; 80053; 81001; 84703; 85025; 85610; 85730; 88304; 94150; 96361; 96374; 99285; G0378; J0694; J2175; J2270; J2405; J2710; J3010; J7030; J0131

== ENCOUNTER 2017-02-14 13:15 | Emergency (ER) | payer MEDICAID ==
[~2017-02-14] VITALS: Ht 172.7 cm; Wt 100.0 kg
[~2017-02-14 13:15] MED LIST changes: -CLIN1CAP6 PO; +DOXY10TA PO; -ZOFR4TAB3 SL
[2017-02-14 13:20] VITALS: BP 124/74; PULSE 108; RESP 16; TEMP 99.1; O2SAT 99
--- NOTE | 2017-02-14 14:09 | PD ---
HPI Chief Complaint: Abdominal Pain Time Seen by Provider: 13:43 Travel History International Travel<30 days: No Contact w/Intl Traveler<30days: No Traveled to known affect area: No History of Present Illness HPI The patient was seen and examined in the presence of the nurse. This patient complains of epigastric pain. Duration 12 hours. Severity is mild to moderate. No alleviating factors. Not having vomiting or diarrhea or fever. No pelvic pain or vaginal discharge. She is . She had an ultrasound last month and she has a 15 week 1 day old IUP. PFS Past Medical History Asthma: Yes Cardiovascular Problems: Yes (HTN) Diminished Hearing: No Hypertension: Yes Respiratory: Yes (ASTHMA) Influenza Vaccination: No ?: LMP: 10/14/16 : 6 Para: 3 Miscarriage: 0 : 2 Past Surgical History Appendectomy: Yes Social History Alcohol Use: No Tobacco Use: No Substance Use: No Allergies-Medications (Allergen,Severity, Reaction): Coded Allergies: No Known Allergies (Unverified , 02/14/17) Reported Meds & Prescriptions Reported Meds & Active Scripts Active No Active Prescriptions or Reported Medications Review of Systems General / Constitutional: No: Fever Eyes: No: Visual changes HENT: No: Headaches Cardiovascular: No: Chest Pain or Discomfort Respiratory: No: Shortness of Breath Gastrointestinal: Positive: Abdominal Pain Genitourinary: No: Dysuria Musculoskeletal: No: Pain Skin: No Rash Neurologic: No: Weakness Psychiatric: No: Depression Endocrine: No: Polydipsia Hematologic/Lymphatic: No: Easy Bruising Physical Exam Narrative GENERAL: Well-nourished, well-developed patient in no apparent distress. SKIN: Warm and dry. HEAD: Atraumatic. Normocephalic. EYES: Pupils equal and round. No scleral icterus. No injection or drainage. ENT: No nasal bleeding or discharge. Mucous membranes pink and moist. NECK: Trachea midline. No JVD. CARDIOVASCULAR: Regular rate and rhythm. No murmur appreciated. RESPIRATORY: No accessory muscle use. Clear to auscultation. Breath sounds equal bilaterally. GASTROINTESTINAL: Abdomen soft, mild epigastric tenderness without rebound or guarding, nondistended. Hepatic and splenic margins not palpable. MUSCULOSKELETAL: No obvious deformities. No clubbing. No cyanosis. No edema. NEUROLOGICAL: Awake and alert. No obvious cranial nerve deficits. Motor grossly within normal limits. Normal speech. PSYCHIATRIC: Appropriate mood and affect; insight and judgment normal. Data Data Last Documented VS Vital Signs Date Time Temp Pulse Resp B/P Pulse Ox O2 Delivery O2 Flow Rate FiO2 02/14/17 13:20 99.1 108 16 124/74 99 Orders Ondansetron Inj (Zofran Inj) (02/14/17 14:15) Lidocaine 2% Viscous (Xylocaine 2% Visco (02/14/17 14:15) Al-Mag Hy-Si 40-40-4 Mg/Ml Liq (Mag-Al P (02/14/17 14:15) Iv Access Insert/Monitor (02/14/17 14:03) Complete Blood Count With Diff (02/14/17 14:03) Lipase (02/14/17 14:03) Comprehensive Metabolic Panel (02/14/17 14:03) Labs Laboratory Tests Test 02/14/17 14:20 White Blood Count 9.2 TH/MM3 Red Blood Count 4.32 MIL/MM3 Hemoglobin 8.0 GM/DL Hematocrit 25.6 % Mean Corpuscular Volume 59.3 FL Mean Corpuscular Hemoglobin 18.6 PG Mean Corpuscular Hemoglobin 31.3 % Concent Red Cell Distribution Width 18.6 % Platelet Count 247 TH/MM3 Mean Platelet Volume 7.9 FL Neutrophils (%) (Auto) 91.8 % Lymphocytes (%) (Auto) 3.9 % Monocytes (%) (Auto) 3.3 % Eosinophils (%) (Auto) 0.9 % Basophils (%) (Auto) 0.1 % Neutrophils # (Auto) 8.4 TH/MM3 Lymphocytes # (Auto) 0.4 TH/MM3 Monocytes # (Auto) 0.3 TH/MM3 Eosinophils # (Auto) 0.1 TH/MM3 Basophils # (Auto) 0.0 TH/MM3 CBC Comment AUTO DIFF Differential Comment AUTO DIFF CONFIRMED Sodium Level 141 MEQ/L Potassium Level 3.2 MEQ/L Chloride Level 107 MEQ/L Carbon Dioxide Level 21.5 MEQ/L Anion Gap 13 MEQ/L Blood Urea Nitrogen 9 MG/DL Creatinine 0.36 MG/DL Estimat Glomerular Filtration 209 ML/MIN Rate Random Glucose 97 MG/DL Calcium Level 8.3 MG/DL Total Bilirubin 0.5 MG/DL Aspartate Amino Transf 13 U/L (AST/SGOT) Alanine Aminotransferase 16 U/L (ALT/SGPT) Alkaline Phosphatase 66 U/L Total Protein 6.8 GM/DL Albumin 2.6 GM/DL Lipase 148 U/L MDM Medical Decision Making Medical Screen Exam Complete: Yes Emergency Medical Condition: Yes Medical Record Reviewed: Yes Differential Diagnosis Differential diagnosis includes pancreatitis, biliary colic, hepatitis, GERD, peptic ulcer disease. Narrative Course I have reviewed the patient's electronic medical record. She had an appendectomy 4 weeks ago. I looked at all her prior lab counts and she has hemoglobins between 8 and 9 IV placed I gave her IV Zofran and a trial of Maalox and lidocaine CBC shows anemia which is chronic Metabolic profile is normal except for potassium of 3.2 LFTs are normal Lipase is normal On recheck the patient is clinically improved. She feels like the medication helped. She has a soft benign nontender abdomen and some degree of dyspepsia Recurrent primary care follow-up and small bland meals Diagnosis Primary Impression: Epigastric pain Additional Impression: Abdominal pain affecting Additional Instructions: The patient was advised to follow up with their physician and return if they worsen. Med/Other Pt SpecificInfo: Other Scripts No Active Prescriptions or Reported Meds Disposition: 01 DISCHARGE HOME Condition: Stable Timothy Fernández MD Feb 14, 2017 14:09
[2017-02-14] MEDS ORDERED: ONDANSETRON HCL 4 MG/2 ML VIAL IVP ONE (14:15)
[2017-02-14] MEDS ORDERED: ALUMINUM/MAGNESIUM/SIMETH 30 ML CUP PO ONE (14:15)
[2017-02-14] MEDS ORDERED: LIDOCAINE VISCOUS 2% SOLN 15 ML UDC PO ONE (14:15)
[2017-02-14 14:35] LABS: AUTOMATED NEUTROPHIL # 8.4 TH/MM3 (1.8-7.7); BASOPHIL % 0.1 % (0.0-2.0); EOSINOPHIL # 0.1 TH/MM3 (0-0.4); EOSINOPHIL % 0.9 % (0.0-4.0); HEMATOCRIT 25.6 % (35.0-46.0); LYMPH % 3.9 % (9.0-44.0); LYMPHOCYTE # 0.4 TH/MM3 (1.0-4.8); MEAN CELL VOLUME 59.3 FL (80.0-100.0); MEAN CORPUSCULAR HEMOGLOBIN 18.6 PG (27.0-34.0); MEAN CORPUSCULAR HGB CONC 31.3 % (32.0-36.0); MONO % 3.3 % (0.0-8.0); NEUT % 91.8 % (16.0-70.0); PLATELET COUNT 247 TH/MM3 (150-450); RED BLOOD COUNT 4.32 MIL/MM3 (4.00-5.30); RED CELL DISTRIBUTION WIDTH 18.6 % (11.6-17.2); WHITE BLOOD COUNT 9.2 TH/MM3 (4.0-11.0)
[2017-02-14 14:37] LABS: CHLORIDE 107 MEQ/L (98-107); POTASSIUM 3.2 MEQ/L (3.5-5.1); SODIUM (NA) 141 MEQ/L (136-145)
[2017-02-14 14:39] LABS: HEMO FLAGS AUTO DIFF
[2017-02-14 14:41] LABS: ANION GAP 13 MEQ/L (5-15); BICARBONATE 21.5 MEQ/L (21.0-32.0); BLOOD UREA NITROGEN 9 MG/DL (7-18)
[2017-02-14 14:44] LABS: ALT (GPT) 16 U/L (10-53); AST (GOT) 13 U/L (15-37); GLOMERULAR FILTRATION RATE 209 ML/MIN (>89)
[2017-02-14 14:46] LABS: TOTAL BILIRUBIN ADULT 0.5 MG/DL (0.2-1.0)
[2017-02-14 14:47] LABS: ALKALINE PHOSPHATASE 66 U/L (45-117)
[2017-02-14 15:15] VITALS: BP 124/67; PULSE 84; RESP 16; O2SAT 98
[2017-02-14 15:22] LABS: SCAN/DIFF AUTO DIFF CONFIRMED
[2017-02-14 16:09] VITALS: BP 116/67
== END 2017-02-14 16:13 | disposition home or self-care (01) ==
LOC: PHED 13:15
DX: R10.13 Epigastric pain (principal); O26.892 Other specified pregnancy related conditions, second trimester; I10 Essential (primary) hypertension; Z3A.00 Weeks of gestation of pregnancy not specified
CPT/HCPCS: 80053; 83690; 85025; 96374; 99284; J2405

== ENCOUNTER 2017-07-15 22:26 | Emergency (ER) | payer MEDICAID ==
[2017-07-15] VITALS (12 sets, daily range): BP systolic 131–149; BP diastolic 74–85; PULSE 88–101
[2017-07-15] MEDS ORDERED: LACTATED RINGER'S 1000 ML INJ 1,000 ML IV SCH (23:31)
--- NOTE | 2017-07-15 23:34 | PD ---
HPI Chief Complaint headache, contractions Date Seen: Jul 15, 2017 (Juan Rasmussen MD, R3) Travel History International Travel<30 Days: No Contact w/Intl Traveler<30Days: No (Juan Rasmussen MD, R3) History of Present Illness HPI Ms. Patel is a 32 yo at 37 4/7 weeks (GAUDENCIO 08/01/2017) patient of Dr. Wilkes who presents with complaints of headache, feelings of contractions, and concern for labor. Patient reports that she began feeling abdominal and back pain yesterday which occurred approximately every 5 minutes. Patient states that severity of pain has not recently changed. Patient does not report vaginal fluid or vaginal bleeding. Patient states that she went to Dr. Wilkes's office yesterday and was told that she was approximately 3 cm dilated. Due to continued pain, patient again contacted Dr. Wilkes and was instructed to go to OB ED since she felt poorly. Patient states the addition to her intermittent abdominal/ back pain, she has had headaches for the past day. Patient states that headache is frontal and bilateral. Patient reports some chronic visual blurriness but that this is due to her wearing glasses; no recent visual changes. Patient does not report nausea/vomiting, dysuria, shortness of breath , chest pain, or fever/chills. Patient states that she has remote history of chronic hypertension but that she has not taken any hypertensive for approximately 3 years. Patient does not report any history of gestational hypertension/preeclampsia. Review of labs: GBS negative; no concern for blood borne pathogens Weeks Gestation: 37 Para: 4 : 6 (Juan Rasmussen MD, R3) History Past Medical History Narrative Medical chronic HTN- previously treated with antihypertensive but not for the past ~3 years (Juan Rasmussen MD, R3) Obstetric History Obstetric History 023 (1 child at ~1mo of life) Prior gestations were vaginal, full term at 38 weeks (Juan Rasmussen MD, R3) Past Surgical History Surgical History: No Previous Surgery (Juan Rasmussen MD, R3) Family History Narrative Family History Unspecified anemia Family History: (Juan Rasmussen MD, R3) Social History Narrative Social History None reported Alcohol Use: No Tobacco Use: No Substance Abuse: No (Juna Rasmussen MD, R3) Allergies-Medications (Allergen,Severity, Reaction): Coded Allergies: No Known Allergies (Unverified , 02/14/17) Home Meds No Active Prescriptions or Reported Meds Review of Systems General / Constitutional: No: Fever Eyes: No: Blurred Vision HENT: Headaches Cardiovascular: No: Chest Pain or Discomfort Respiratory: No: Short of Breath Gastrointestinal: Abdominal Pain (occasional), No: Nausea, Diarrhea Genitourinary: No: Urgency, Dysuria (Juan Rasmussen MD, R3) Physical Exam Initial BP 139/88 HR 106 T ~98F Narrative GENERAL: Well-nourished, well-developed patient. SKIN: Warm and dry. HEAD: Normocephalic and atraumatic. EYES: No scleral icterus. No injection or drainage. ENT: No nasal drainage noted. Mucous membranes pink. Airway patent. NECK: Supple, trachea midline. No JVD. CARDIOVASCULAR: Regular rate and rhythm without murmurs, gallops, or rubs. RESPIRATORY: Breath sounds equal bilaterally. No accessory muscle use. ABDOMEN/GI: Abdomen soft, non-tender, bowel sounds present, no rebound, no guarding Gravid EXTREMITIES: No cyanosis or edema. NEUROLOGICAL: Awake and alert. Motor and sensory function grossly within normal limits. GENITOURINARY: Cervical exam per nursing staff: 4/50%/soft/-2 Membranes: Intact Uterine Contractions: None/irritability FHT's: Category: 2 Baseline: 170 Reactive: Y Variability: Mod Decels: None (Juan Rasmussen MD, R3) Data Data Vital Signs Reviewed: Yes Orders Orders Cbc No Diff, Includes Plts (07/15/17 23:24) Comprehensive Metabolic Panel (07/15/17 23:24) Uric Acid (07/15/17 23:24) Urinalysis - C+S If Indicated (07/15/17 23:24) Ldh Serum (07/15/17 23:24) Group B Strep: Negative (Juan Rasmussen MD, R3) MDM Medical Record Reviewed: Yes Narrative Course / MDM 32 yo at 37 4/7 weeks (GAUDENCIO 08/01/2017) patient of Dr. Wilkes who presents with complaints of headache, feelings of contractions, and concern for labor Vitals: Intermittent HTN to max BP 149/81 -Frontal headache, new onset -Cat 2 rhythm ( tachycardia with baseline ~170, reactive) -irritability, occasional contractions on EFM -Cervix dilated to 4 cm Plan: -Continue EFM -We'll recheck cervix in approximately 1 hour to assess for change -We'll LR 1 L and monitor tachycardia -HTN history w/ headache; will check CBC< CMP, UA, Uric acid, LDH Interval: Labs resulted- CMP- K 3.3, other electrolytes wnl. Cr 0.39, LFT's wnl LDH 171 Uric acid 3.4 UA pending CBC- PLT 229, Hgb 7.5, MCV 61.7, no leukocytosis EFM reviewed; patient currently has category 1 rhythm with baseline ~130 after IVF Patient re-evaluated; she reports resolution of her headache after Tylenol Repeat BP measurements reassuring (130's/60's-70's) Cervix unchanged on repeat assessment Updated Plan: -Will give patient 50 mEq KCL for mild hypokalemia -Anemia -Encouraged oral iron supplementation for potential iron deficiency anemia ( although thalassemia also possible due to low MCV and FH of anemia) -Since BP has normalized, headache has resolved, cervix unchanged, and PREE labs wnl with exception of anemia and mild hypokalemia; patient deemed stable to discharge home with close follow-up with Dr. Wilkes -Patient to return to OB ED with worsening pain, loss of fluid, vaginal bleeding , decreased FM, or other concerns. (Juan Rasmussen MD, R3) Diagnosis Diagnosis: Primary Impression: Headache in Additional Impressions: 37 weeks gestation of False labor after 37 completed weeks of gestation Disposition: DISCHARGE HOME Condition: Stable Scripts No Active Prescriptions or Reported Meds Referrals: Remington Wilkes MD Patient Instructions: Abdominal Pain in (ED), Early Labor Signs (ED) , General Instructions, Movement (ED) Attestation Patient seen at bedside. Close f/u encouraged. Pre Eclampsia and labor precautions given. (Reshma Castro MD) Juan Rasmussen MD, R3 Jul 15, 2017 23:34 Reshma Castro MD Jul 16, 2017 09:01
[2017-07-15] MEDS ORDERED: ACETAMINOPHEN 325 MG TAB PO PRN (23:45)
[2017-07-15 23:57] LABS: HEMATOCRIT 24.1 % (35.0-46.0); MEAN CELL VOLUME 61.7 FL (80.0-100.0); MEAN CORPUSCULAR HEMOGLOBIN 19.1 PG (27.0-34.0); PLATELET COUNT 229 TH/MM3 (150-450); RED CELL DISTRIBUTION WIDTH 20.8 % (11.6-17.2); REVIEW FLAG FINAL; WHITE BLOOD COUNT 8.9 TH/MM3 (4.0-11.0)
[2017-07-16] VITALS: BP 134/68; PULSE 87; PULSE 90
[2017-07-16 00:05] VITALS: PULSE 93
[2017-07-16 00:15] VITALS: BP 132/79; PULSE 90; PULSE 91
[2017-07-16 00:15] LABS: ALT (GPT) 14 U/L (10-53); ANION GAP 10 MEQ/L (5-15); AST (GOT) 18 U/L (15-37); BICARBONATE 22.9 MEQ/L (21.0-32.0); BLOOD UREA NITROGEN 7 MG/DL (7-18); CHLORIDE 106 MEQ/L (98-107); GLOMERULAR FILTRATION RATE 189 ML/MIN (>89); POTASSIUM 3.3 MEQ/L (3.5-5.1); SODIUM (NA) 139 MEQ/L (136-145); URIC ACID 3.4 MG/DL (2.6-6.0)
[2017-07-16 00:17] LABS: ALKALINE PHOSPHATASE 149 U/L (45-117); LDH SERUM 171 U/L (84-246); TOTAL BILIRUBIN ADULT 0.2 MG/DL (0.2-1.0)
[2017-07-16] MEDS ORDERED: POTASSIUM CHLORIDE 25 MEQ EFFERVESCENT TAB PO ONE (01:15)
== END 2017-07-16 11:11 | disposition home or self-care (01) ==
LOC: HOBED 22:26
DX: O47.1 False labor at or after 37 completed weeks of gestation (principal); Z3A.37 37 weeks gestation of pregnancy; R51 Headache
CPT/HCPCS: 80053; 83615; 84550; 85027; 99284; J7120

== ENCOUNTER → 2017-07-24 | Outpatient (CLI) | payer MEDICAID | LOC: HPND 12:33 | PROVIDERS: ATTEND Obstetrics & Gynecology | DX: O36.8130 Decreased fetal movements, third trimester, not applicable or unspecified (principal) | CPT/HCPCS: 76816; 76818 ==

== ENCOUNTER 2017-07-29 15:46 | Inpatient (IN) | payer MEDICAID ==
[~2017-07-29] VITALS: Ht 167.6 cm; Wt 102.5 kg
[2017-07-29] MEDS ORDERED: MEASLES, MUMPS, RUBELLA VACCINE 0.5 ML VIAL SQ ONE (16:00)
[2017-07-29] MEDS ORDERED: DIPHTH/TETANUS/ACEL PERTUSSIS (BOOSTER) 0.5 ML VIAL/PFS IM ONE (16:00)
[2017-07-29] MEDS ORDERED: OXYTOCIN 30 UNITS/NS 500ML PREMIX IV SCH (17:15)
[2017-07-29 17:19] LABS: AUTOMATED NEUTROPHIL # 7.3 TH/MM3 (1.8-7.7); BASOPHIL % 0.2 % (0.0-2.0); EOSINOPHIL # 0.1 TH/MM3 (0-0.4); EOSINOPHIL % 1.3 % (0.0-4.0); HEMATOCRIT 25.7 % (35.0-46.0); HEMO FLAGS DIFF FINAL; LYMPH % 12.4 % (9.0-44.0); LYMPHOCYTE # 1.1 TH/MM3 (1.0-4.8); MEAN CELL VOLUME 61.9 FL (80.0-100.0); MEAN CORPUSCULAR HEMOGLOBIN 19.4 PG (27.0-34.0); MEAN CORPUSCULAR HGB CONC 31.3 % (32.0-36.0); MONO % 6.1 % (0.0-8.0); PLATELET COUNT 220 TH/MM3 (150-450); RED BLOOD COUNT 4.14 MIL/MM3 (4.00-5.30); RED CELL DISTRIBUTION WIDTH 20.7 % (11.6-17.2); WHITE BLOOD COUNT 9.1 TH/MM3 (4.0-11.0)
[2017-07-29] MEDS ORDERED: ONDANSETRON HCL 4 MG/2 ML VIAL IV PRN (17:30)
[2017-07-29] MEDS ORDERED: OXYTOCIN 30 UNITS 500ML PREMIX IV ONE (17:30)
[2017-07-29] MEDS ORDERED: MINERAL OIL 10 ML VIAL TOPICAL PRN (17:30)
[2017-07-29] MEDS ORDERED: NS 1000 ML IV PRN (17:30)
[2017-07-29] MEDS ORDERED: LIDOCAINE HCL 1% 50 ML VIAL INFIL PRN (17:30)
[2017-07-29] MEDS ORDERED: LIDOCAINE HCL 1% 50 ML VIAL I-DERMAL PRN (17:30)
[2017-07-29] MEDS ORDERED: CITRIC ACID-SODIUM CITRATE LIQ 30 ML UDC PO SCH (17:30)
[2017-07-29] MEDS ORDERED: LACTATED RINGER'S 1000 ML BOLUS IV PRN (17:30)
[2017-07-29] MEDS ORDERED: NS 500 ML BOLUS IV PRN (17:30)
[2017-07-29 17:38] LABS: BLOOD, URINE NEG (NEG); COMMENT (UR) CULT NOT INDICATED; CULTURE IF INDICATED CULT NOT INDICATED; GLUCOSE,URINE NEG (NEG); HYALINE CAST, URINE 1 /lpf (RARE); KETONE, URINE TRACE mg/dL (NEG); MUCUS URINE FEW /lpf (OCC); NITRITE,URINE NEG (NEG); SQUAMOUS EPITHELIAL CELL URINE 4 /hpf (0-5); URINE COLOR YELLOW (YELLW/STRAW)
[2017-07-29] MEDS: LACTATED RINGER'S 1000 ML IV SCH ×2 (17:53→22:46)
[2017-07-29] MEDS ORDERED: fentaNYL 2MCG-BUPIV 0.125% INJ 100 ML ONE (19:09)
--- NOTE | 2017-07-29 22:11 | HHI.HP ---
HPI Chief Complaint induction Date Seen: Jul 29, 2017 Time Seen: 17:30 Travel History International Travel<30 Days: No Contact w/Intl Traveler<30Days: No Known Affected Area: No History of Present Illness HPI 32 yo presents at 39+ wks for induction of labor. +fm and irregular contractions. denies vaginal bleeding and LOF. uncomplicated History Past Medical History Narrative Medical asthma GERD h/o HTN Obstetric History Obstetric History 3 FT SVDs 2 EABs Past Surgical History Narrative Surgical scope appendectomy Family History Family History: Negative Social History Alcohol Use: No Tobacco Use: No Substance Abuse: No Allergies-Medications (Allergen,Severity, Reaction): Coded Allergies: No Known Allergies (Unverified , 02/14/17) Home Meds No Active Prescriptions or Reported Meds Review of Systems Except as stated in HPI: all other systems reviewed are Neg Physical Exam Narrative GENERAL: Well-nourished, well-developed patient. SKIN: Warm and dry. HEAD: Normocephalic and atraumatic. EYES: No scleral icterus. No injection or drainage. ENT: No nasal drainage noted. Mucous membranes pink. Airway patent. NECK: Supple, trachea midline. No JVD. CARDIOVASCULAR: Regular rate and rhythm without murmurs, gallops, or rubs. RESPIRATORY: Breath sounds equal bilaterally. No accessory muscle use. BREASTS: Bilateral exam showed no masses , no retractions, no nipple discharge. ABDOMEN/GI: Abdomen soft, non-tender, bowel sounds present, no rebound, no guarding Gravid to 39 weeks size Fundal Height: [-] GENITOURINARY: External Genitalia: intact and normal in appearance BUS glands: [-] Cervix: [-] Dilatation: [-] 5-6 Effacement: [-] 70 Station: [-] -2 Presentation: [-] vtx Membranes: [intact or ruptured] AROM clear Uterine Contractions: [-] FHT's: Category: [-] 1 Baseline: [-] 140s Reactive: [-] yes Variability: [-] Decels: [-] none EXTREMITIES: No cyanosis or edema. BACK: Nontender without obvious deformity. No CVA tenderness. NEUROLOGICAL: Awake and alert. Motor and sensory grossly within normal limits. Five out of 5 muscle strength in all muscle groups. Normal speech. Assessment/Plan Problem List: (1) ICD Codes: Z34.90 - Encounter for supervision of normal , unspecified , unspecified trimester Status: Acute Qualifiers: Qualified Codes: Z3A.39 - 39 weeks gestation of Plan: admit start pit epidural Remington Corcoran MD Jul 29, 2017 22:11
--- NOTE | 2017-07-29 22:14 | PD.OB.DELI ---
Weeks gestation: 39 Gest age assessed date: Jul 29, 2017 Gest age assessed time: 17:00 Pt started active labor?: Yes Medical induction of labor?: Yes Medical induction start date: Jul 29, 2017 Medical induction start time: 16:00 Artificial rupture of membrane: Yes Artificial ROM date: Jul 29, 2017 Artifical ROM time: 17:30 Anesthesia: Epidural Episiotomy: None Vaginal Delivery: Normal Presentation: Occiput anterior Nuchal Cord: None Delayed cord clamping (45 sec): Yes Infant: Male, Single Delivery date: Jul 29, 2017 Delivery time: 21:45 One Minute : 8 Five Minute : 9 Weight: 7-7 Placenta: Spontaneous delivery, Intact, 3 vessel cord Laceration: Perineal laceration, 1 deg Repair: Chromic running Estimated blood loss: 300 ml Remington Wilkes MD Jul 29, 2017 22:14
[2017-07-29 22:15] VITALS: BP 136/89; PULSE 92
[2017-07-29] MEDS ORDERED: WITCH HAZEL 50%/GLYCERIN 12.5% 40 PAD JAR TOPICAL PRN (22:15)
[2017-07-29] MEDS ORDERED: OXYTOCIN 30 UNITS-500ML PREMIX 500 ML IV SCH (22:15)
[2017-07-29] MEDS ORDERED: ONDANSETRON ODT 4 MG TAB PO PRN (22:15)
[2017-07-29] MEDS ORDERED: DOCUSATE SODIUM 50 MG/SENNA 8.6 MG TAB PO PRN (22:15)
[2017-07-29] MEDS ORDERED: OXYTOCIN 30 UNITS-500ML PREMIX 500 ML IV ONE (22:15)
[2017-07-29] MEDS ORDERED: ALUMINUM/MAGNESIUM/SIMETH 30 ML CUP PO PRN (22:15)
[2017-07-29] MEDS ORDERED: oxyCODONE/ACETAMINOPHEN 5 MG/325 MG TAB PO PRN ×2 (22:15)
[2017-07-29] MEDS ORDERED: SODIUM CHLORIDE 0.9% FLUSH 10 ML FLUSH IV FLUSH PRN (22:15)
[2017-07-29] MEDS ORDERED: OXYTOCIN 10 UNIT/ML AMP XX PRN (22:15)
[2017-07-29] MEDS ORDERED: BENZOCAINE 20% TOPICAL SPRAY 60 ML CAN TOPICAL PRN (22:15)
[2017-07-29] MEDS ORDERED: ZOLPIDEM TARTRATE 5 MG TAB PO PRN (22:15)
[2017-07-29 22:26] VITALS: RESP 20
[2017-07-29 22:32] VITALS: BP 145/78; PULSE 97
[2017-07-29 22:45] VITALS: BP 142/86; PULSE 84; RESP 20
[2017-07-29 22:54] VITALS: RESP 20; TEMP 99
[2017-07-29 23:00] VITALS: BP 152/85; PULSE 84
[2017-07-30 01:09] VITALS: BP 110/71; PULSE 85; RESP 18; TEMP 98.2; O2SAT 98
[2017-07-30 08:50] VITALS: BP 119/72; PULSE 81; RESP 18; TEMP 98.3
[2017-07-30] MEDS ORDERED: SODIUM CHLORIDE 0.9% FLUSH 10 ML FLUSH IV FLUSH SCH (09:00)
[2017-07-30] MEDS: IBUPROFEN 600 MG TAB PO PRN ×2 (09:43→18:00)
[2017-07-30] MEDS: ACETAMINOPHEN 325 MG TAB PO PRN ×2 (09:43→18:00)
[2017-07-30 20:00] VITALS: BP 134/79; PULSE 81; RESP 18
--- NOTE | 2017-07-30 22:29 | HHI.OB ---
Subjective Remarks pain controlled, mod lochia, grace po, +void/flatus Objective Vitals/I&O Vital Signs Date Time Temp Pulse Resp B/P (MAP) Pulse Ox O2 Delivery O2 Flow Rate FiO2 07/30/17 20:00 81 18 134/79 (97) 07/30/17 08:50 98.3 81 18 119/72 (88) 07/30/17 01:09 98.2 85 18 110/71 (84) 98 07/29/17 23:00 84 152/85 (107) 07/29/17 22:54 99.0 20 07/29/17 22:45 84 142/86 (104) 07/29/17 22:45 20 07/29/17 22:32 97 145/78 (100) Objective Remarks GENERAL: Well-nourished, well-developed patient. CARDIOVASCULAR: Regular rate and rhythm without murmurs, gallops, or rubs. RESPIRATORY: Breath sounds equal bilaterally. No accessory muscle use. ABDOMEN/GI: Abdomen soft, non-tender. Fundus: Firm, non-tender at umbilicus. GENITOURINARY: Light to moderate bleeding. EXTREMITIES: No cyanosis or edema, non-tender, without signs of DVT. Medications and IVs Assessment/Plan Problem List: (1) Spontaneous vaginal delivery ICD Codes: O80 - Spontaneous vaginal delivery Status: Acute Plan: routine pp care Remington Wilkes MD Jul 30, 2017 22:29
[2017-07-31] MEDS: ACETAMINOPHEN 325 MG TAB PO PRN (05:37)
[2017-07-31] MEDS: IBUPROFEN 600 MG TAB PO PRN (05:37)
[2017-07-31 08:20] VITALS: BP_SYST 118; BP_SYST 123; BP_DIAS 76; BP_DIAS 78; PULSE 106; PULSE 65; RESP 16; RESP 20; RESP 34; TEMP 98.4; TEMP 98.8
--- NOTE | 2017-07-31 14:08 | HHI.DCPOC ---
Discharge Care Plan Diagnosis: (1) Spontaneous vaginal delivery Report Symptoms to Your Doctor -Temperature above 100.5 degrees -Redness, of incision or excessive or foul smelling drainage -Unusual pain or calf pain -Increased vaginal bleeding -Painful or difficulty urinating -Feelings of extreme sadness or anxiety after 2 weeks Goals to Promote Your Health * To prevent worsening of your condition and complications * To maintain your health at the optimal level Directions to Meet Your Goals Take your medications as prescribed Follow your dietary instruction Follow activity as directed Ensure plenty of rest for recovery Drink fluids for hydration Keep your appointments as scheduled Take your immunizations and boosters as scheduled If your symptoms worsen call your PCP, if no PCP go to Urgent Care Center or Emergency Room Smoking is Dangerous to Your Health. Avoid second hand smoke Call the 24-hour crisis hotline for domestic abuse at Remington Wilkes MD Jul 31, 2017 14:08
== END 2017-07-31 14:57 | disposition home or self-care (01) | DRG 775 ==
LOC: H2EA 15:46 → H1EA 23:53
PROVIDERS: ADMIT Obstetrics & Gynecology; ATTEND Obstetrics & Gynecology
PROC: 10E0XZZ Delivery of Products of Conception, External Approach (ICD-10-PCS; principal; 2017-07-29)
PROC: 3E033VJ Introduction of Other Hormone into Peripheral Vein, Percutaneous Approach (ICD-10-PCS; 2017-07-29)
DX: O70.0 First degree perineal laceration during delivery (principal); O99.62 Diseases of the digestive system complicating childbirth; K21.9 Gastro-esophageal reflux disease without esophagitis; Z3A.39 39 weeks gestation of pregnancy; Z37.0 Single live birth
CPT/HCPCS: 59025; 81001; 85025; 86900; 86901; J2590; J7120

== ENCOUNTER → 2017-09-22 | Day surgery (SDC) | payer MEDICAID ==
--- NOTE | 2017-09-21 19:35 | MH ---
cc: BETTYE MULLEN DATE OF ADMISSION: 09/22/2017 HISTORY OF PRESENT ILLNESS: The patient is a 32-year-old 6, para 4-0-2-4 who presents approximately 7 weeks for tubal ligation secondary to undesired fertility. PAST MEDICAL HISTORY: The patient's past medical history is significant for asthma. PAST SURGICAL HISTORY: Her past surgical history significant for a laparoscopic appendectomy IN 2017 while . OBSTETRICAL HISTORY: She has had four pregnancies with vaginal deliveries, two first trimester terminations. GYNECOLOGIC HISTORY: No STDs or abnormal Pap smears. SOCIAL HISTORY: Social history is negative for cigarettes, alcohol or street drugs. The patient is and is a homemaker. FAMILY HISTORY: Family history is noncontributory. PHYSICAL EXAMINATION: HEIGHT: 5 feet 5. WEIGHT: 205. VITAL SIGNS: Her blood pressure is 120/80. GENERAL: In general, she is in no acute distress. HEART: Regular rate and rhythm. LUNGS: Clear to auscultation bilaterally. ABDOMEN: The abdomen is soft, nontender and nondistended. LOWER EXTREMITIES: Nontender, nonedematous. IMPRESSION: Undesired fertility. PLAN: Laparoscopic bilateral tubal ligation. The risks, benefits, and alternatives have been reviewed. The patient does desire to proceed. MD BALTAZAR Mace/BON /6:39 PM /7:30 PM
[~2017-09-22] VITALS: Ht 167.6 cm; Wt 96.7 kg
[~2017-09-22] MED LIST changes: +*morphine SULFATE 8 MG/ML PERIprocedure ONLY ONE; +BUPIVACAINE/EPINEPHRINE 0.5% 50 ML VIAL ONE; +CHLORHEXIDINE GLUCONATE 2 % 1 PACK (2 CLOTHS) TOPICAL PRN; +DEXAMETHASONE SOD PHOS 4 MG/ML VIAL IV ONE; +DO NOT ADM ANY ANTICOAGULANT DRUGS PRN; -DOXY10TA PO; +GLYCOPYRROLATE 1 MG/5 ML SYRINGE IV PUSH ONE; +INSULIN HUMAN REGULAR 1,000 UNITS/10 ML VIAL SQ PRN; +KETOROLAC TROMETHAMINE 30 MG/ML (IVP) VIAL IV PUSH ONE; +LACTATED RINGER'S 1000 ML IV PRN; +LIDOCAINE HCL 1% PF 5 ML AMPULE OTHER ONE; +METOPROLOL TARTRATE 25 MG TAB PO PRN; +MIDAZOLAM HCL 2 MG/2 ML VIAL IV ONE; +MORPHINE SULFATE 4 MG/ML INJ ONE; +NEOSTIGMINE 3 MG/3 ML SYR IV ONE; +ONDANSETRON HCL 4 MG/2 ML VIAL IV PUSH ONE; +ONDANSETRON HCL 4 MG/2 ML VIAL IV PUSH PRN; +POVIDONE IODINE 5% (ANTISEPSIS KIT) 4 APPLICATIONS EACH NARE PRN; +PROPOFOL 200 MG/20 ML AMP IV ONE; +ROCURONIUM INJ 50 MG/5 ML SYRINGE IV PUSH ONE; +SODIUM CHLORID 0.9% 500 ML IV PRN; +ceFAZolin 2 GM PREMIX 50 ML IV SCH; +oxyCODONE/ACETAMINOPHEN 10 MG/325 MG TAB PO PRN; +oxyCODONE/ACETAMINOPHEN 5 MG/325 MG TAB PO PRN
[2017-09-22 07:15] LABS: AUTOMATED NEUTROPHIL # 5.1 TH/MM3 (1.8-7.7); BASOPHIL % 0.5 % (0.0-2.0); EOSINOPHIL # 0.2 TH/MM3 (0-0.4); EOSINOPHIL % 2.5 % (0.0-4.0); HEMATOCRIT 27.4 % (35.0-46.0); HEMOGLOBIN 8.3 GM/DL (11.6-15.3); LYMPH % 22.5 % (9.0-44.0); LYMPHOCYTE # 1.7 TH/MM3 (1.0-4.8); MEAN CELL VOLUME 62.6 FL (80.0-100.0); MEAN CORPUSCULAR HEMOGLOBIN 18.9 PG (27.0-34.0); MEAN CORPUSCULAR HGB CONC 30.2 % (32.0-36.0); MEAN PLATELET VOLUME 8.6 FL (7.0-11.0); MONO % 5.3 % (0.0-8.0); MONOCYTE # 0.4 TH/MM3 (0-0.9); NEUT % 69.2 % (16.0-70.0); PLATELET COUNT 304 TH/MM3 (150-450); RED BLOOD COUNT 4.38 MIL/MM3 (4.00-5.30); WHITE BLOOD COUNT 7.4 TH/MM3 (4.0-11.0)
--- NOTE | 2017-09-22 09:23 | PD.OP ---
Operative Report Date of Surgery: Sep 22, 2017 Preoperative Diagnosis: undesired fertility Postoperative Diagnosis: same Procedure: laparoscopic bilateral tubal ligation Anesthesia: GET Surgeon: Remington Wilkes MD Early Childhood Services Coordinator(s): dana cruz Operation and Findings: The patient was consented. She was taken to the operating room. She was prepped and draped in a normal sterile fashion for surgery. Next, the acorn uterine manipulator was inserted into the uterus and the anterior lip of the cervix was grasped using a single-toothed tenaculum. Gloves were then changed. The umbilical fold was then injected with 25% Marcaine with epinephrine and then a 5 millimeter skin incision was made in the umbilical fold. Then using the 5 millimeter trocar and direct visualization, this was inserted. Pneumoperitoneum was then obtained. Next, a second 5 millimeter incision was made after Marcaine had been injected approximately two fingerbreadths above the pubic symphysis and a second 5 millimeter trocar was inserted under direct visualization. Next, the findings previously revealed were noted. The Kleppinger with a resistance meter were used to cauterize approximately a 2-3 centimeter segment of fallopian tube with good result. It was done initially on the patient's left and then on the patient's right. Once this was done, it was felt the procedure was complete. All instruments were removed from the patient's abdomen. It was deflated. The skin incisions were closed using 4-0 Monocryl suture. All instruments were also removed from the patient's vagina. She was then awakened and taken to the recovery room in stable condition. Remington Wilkes MD Sep 22, 2017 09:23
[2017-09-22 11:30] VITALS: BP 135/75; PULSE 75; RESP 20; TEMP 97.8; O2SAT 97
--- NOTE | 2017-09-22 12:19 | EKG ---
Date Performed: 09/22/2017 Time Performed: 07:17:42 PTAGE: 32 years EKG: Sinus rhythm NORMAL ECG NO PREVIOUS TRACING DOCTOR: Neo Varela Interpretating Date/Time 09/22/2017 12:13:56
--- NOTE | 2017-09-22 12:19 | EKG ---
Date Performed: 09/22/2017 Time Performed: 07:17:42 PTAGE: 32 years EKG: Sinus rhythm NORMAL ECG NO PREVIOUS TRACING DOCTOR: Neo Varela Interpretating Date/Time 09/22/2017 12:13:56
--- NOTE | 2017-09-22 12:19 | EKG ---
Date Performed: 09/22/2017 Time Performed: 07:17:42 PTAGE: 32 years EKG: Sinus rhythm NORMAL ECG NO PREVIOUS TRACING DOCTOR: Neo Varela Interpretating Date/Time 09/22/2017 12:13:56
== END | disposition home or self-care (01) ==
LOC: HSDC 06:11
PROVIDERS: ATTEND Obstetrics & Gynecology
DX: Z30.2 Encounter for sterilization (principal); J45.909 Unspecified asthma, uncomplicated; Z01.810 Encounter for preprocedural cardiovascular examination
CPT/HCPCS: 00851; 58670; 84703; 85025; 86850; 86900; 86901; 93005; J0690; J1100; J1885; J2250; J2270; J2405; J2710; J3010; J7120

== ENCOUNTER 2017-11-17 22:03 | Emergency (ER) | payer MEDICAID, OTHER ==
[2017-11-17 22:26] VITALS: BP 134/68; PULSE 106; RESP 20; TEMP 99.8; O2SAT 97
[2017-11-18 00:17] LABS: AUTOMATED NEUTROPHIL # 7.3 TH/MM3 (1.8-7.7); BASOPHIL # 0.1 TH/MM3 (0-0.2); BASOPHIL % 1.1 % (0.0-2.0); EOSINOPHIL # 0.1 TH/MM3 (0-0.4); EOSINOPHIL % 1.4 % (0.0-4.0); HEMATOCRIT 29.9 % (35.0-46.0); LYMPHOCYTE # 0.8 TH/MM3 (1.0-4.8); MEAN CELL VOLUME 61.5 FL (80.0-100.0); MEAN CORPUSCULAR HEMOGLOBIN 18.6 PG (27.0-34.0); MEAN CORPUSCULAR HGB CONC 30.2 % (32.0-36.0); MEAN PLATELET VOLUME 7.5 FL (7.0-11.0); MONO % 3.2 % (0.0-8.0); MONOCYTE # 0.3 TH/MM3 (0-0.9); NEUT % 85.3 % (16.0-70.0); PLATELET COUNT 387 TH/MM3 (150-450); RED BLOOD COUNT 4.87 MIL/MM3 (4.00-5.30); RED CELL DISTRIBUTION WIDTH 17.4 % (11.6-17.2); WHITE BLOOD COUNT 8.6 TH/MM3 (4.0-11.0)
[2017-11-18 00:18] LABS: CHLORIDE 104 MEQ/L (98-107); SODIUM (NA) 138 MEQ/L (136-145)
[2017-11-18 00:21] LABS: CALCIUM 8.3 MG/DL (8.5-10.1)
[2017-11-18 00:22] LABS: ALBUMIN 3.3 GM/DL (3.4-5.0); BICARBONATE 26.2 MEQ/L (21.0-32.0); BLOOD UREA NITROGEN 15 MG/DL (7-18); GLUCOSE,RANDOM 95 MG/DL (74-106)
[2017-11-18 00:25] LABS: ALT (GPT) 24 U/L (10-53); AST (GOT) 24 U/L (15-37); CREATININE 0.47 MG/DL (0.50-1.00); GLOMERULAR FILTRATION RATE 153 ML/MIN (>89)
[2017-11-18 00:26] LABS: TOTAL BILIRUBIN ADULT 0.5 MG/DL (0.2-1.0); TOTAL PROTEIN 7.8 GM/DL (6.4-8.2)
[2017-11-18 00:28] LABS: ALKALINE PHOSPHATASE 90 U/L (45-117)
[2017-11-18] MEDS ORDERED: PEPT262S PO (00:35)
[2017-11-18] MEDS ORDERED: SODITAB PO (00:35)
[2017-11-18 00:36] VITALS: BP 126/54; PULSE 86; RESP 20; TEMP 100.5; O2SAT 98
[2017-11-18 00:46] LABS: OVALOCYTES 1+ (NORMAL)
[2017-11-18 01:30] VITALS: BP 116/65; PULSE 80; RESP 20; O2SAT 96
[2017-11-18 02:27] VITALS: TEMP 99.5
--- NOTE | 2017-11-18 02:50 | PD ---
HPI Chief Complaint: GI Complaint Time Seen by Provider: 02:45 Travel History International Travel<30 days: No Contact w/Intl Traveler<30days: No Traveled to known affect area: No History of Present Illness HPI The patient is a 32-year-old female that complains of generalized abdominal pain , vomiting and diarrhea. She denies any blood in the stool or vomitus. She thinks he's had a low-grade temperature at home but never took her temperature at home. She does not have any major medical problems and, specifically, denies any previous history of bowel problems. PFSH Past Medical History Asthma: Yes Cardiovascular Problems: Yes Diminished Hearing: No Hypertension: Yes Respiratory: Yes ?: Unknown LMP: 10/23/17 : 6 Para: 4 Miscarriage: 0 : 2 Past Surgical History Abdominal Surgery: Yes (APPENDECTOMY) Appendectomy: Yes Social History Alcohol Use: No Tobacco Use: No Substance Use: No Allergies-Medications (Allergen,Severity, Reaction): Coded Allergies: No Known Allergies (Unverified Adverse Reaction, Unknown, 11/18/17) Reported Meds & Prescriptions Reported Meds & Active Scripts Active Reported Pepto-Bismol Liq (Bismuth Subsalicylate) 262 Mg/15 Ml Susp 30 Ml PO PRN Do not exceed 8 doses (240 mL or 16 tbsp) in 24 hours. Chelsy-Gamaliel Heartburn Relief (Sodium Bicarbonate-Citric Acid) 1,940-1,000 Mg Tab 2 Tab PO Q4H PRN Review of Systems Except as stated in HPI: all other systems reviewed are Neg Physical Exam Narrative GENERAL: The patient is alert, oriented 3, moderately dehydrated appearing. When I see her the patient is sleeping, comfortable and not nauseated. Her vital signs show temperature 99.8 with heart rate of 106 but otherwise are normal. SKIN: Focused skin assessment warm/dry. HEAD: Atraumatic. Normocephalic. EYES: Pupils equal and round. No scleral icterus. No injection or drainage. ENT: No nasal bleeding or discharge. Mucous membranes pink and moist. NECK: Trachea midline. No JVD. CARDIOVASCULAR: Regular rate and rhythm. No murmur appreciated. RESPIRATORY: No accessory muscle use. Clear to auscultation. Breath sounds equal bilaterally. GASTROINTESTINAL: Abdomen soft, with generalized tenderness to direct palpation in all 4 quadrants, nondistended. Hepatic and splenic margins not palpable. MUSCULOSKELETAL: No obvious deformities. No clubbing. No cyanosis. No edema. NEUROLOGICAL: Awake and alert. No obvious cranial nerve deficits. Motor grossly within normal limits. Normal speech. PSYCHIATRIC: Appropriate mood and affect; insight and judgment normal. Data Data Last Documented VS Vital Signs Date Time Temp Pulse Resp B/P (MAP) Pulse Ox O2 Delivery O2 Flow Rate FiO2 11/18/17 02:27 99.5 11/18/17 00:36 86 20 98 Orders Orders Complete Blood Count With Diff (11/17/17 23:56) Urinalysis - C+S If Indicated (11/17/17 23:56) Comprehensive Metabolic Panel (11/17/17 23:56) Sodium Chlor 0.9% 1000 Ml Inj (Ns 1000 M (11/18/17 03:00) Labs Laboratory Tests Test 11/18/17 00:03 White Blood Count 8.6 TH/MM3 Red Blood Count 4.87 MIL/MM3 Hemoglobin 9.0 GM/DL Hematocrit 29.9 % Mean Corpuscular Volume 61.5 FL Mean Corpuscular Hemoglobin 18.6 PG Mean Corpuscular Hemoglobin Concent 30.2 % Red Cell Distribution Width 17.4 % Platelet Count 387 TH/MM3 Mean Platelet Volume 7.5 FL Neutrophils (%) (Auto) 85.3 % Lymphocytes (%) (Auto) 9.0 % Monocytes (%) (Auto) 3.2 % Eosinophils (%) (Auto) 1.4 % Basophils (%) (Auto) 1.1 % Neutrophils # (Auto) 7.3 TH/MM3 Lymphocytes # (Auto) 0.8 TH/MM3 Monocytes # (Auto) 0.3 TH/MM3 Eosinophils # (Auto) 0.1 TH/MM3 Basophils # (Auto) 0.1 TH/MM3 CBC Comment AUTO DIFF Differential Comment AUTO DIFF CONFIRMED Platelet Estimate NORMAL Platelet Morphology Comment NORMAL Ovalocytes 1+ Blood Urea Nitrogen 15 MG/DL Creatinine 0.47 MG/DL Random Glucose 95 MG/DL Total Protein 7.8 GM/DL Albumin 3.3 GM/DL Calcium Level 8.3 MG/DL Alkaline Phosphatase 90 U/L Aspartate Amino Transf (AST/SGOT) 24 U/L Alanine Aminotransferase (ALT/SGPT) 24 U/L Total Bilirubin 0.5 MG/DL Sodium Level 138 MEQ/L Potassium Level 3.8 MEQ/L Chloride Level 104 MEQ/L Carbon Dioxide Level 26.2 MEQ/L Anion Gap 8 MEQ/L Estimat Glomerular Filtration Rate 153 ML/MIN MDM Medical Decision Making Medical Screen Exam Complete: Yes Emergency Medical Condition: Yes Medical Record Reviewed: Yes Interpretation(s) The CBC is normal except for hemoglobin of 9 and hematocrit of 30. The complete metabolic profile shows a calcium of 8.3 and albumen 3.3 but is otherwise normal. Differential Diagnosis Gastroenteritis, gastritis, colitis, cholecystitis, urinary tract infection, dehydration, electrolyte disorder Narrative Course The patient appears to have a viral gastroenteritis. She has responded to 2 L of saline and feels better and wants to go home. She will be given a prescription for Compazine and a 5 day work excuse. She needs to stick with clear liquids the next 2 or 3 days. Additional Instructions: For the next 2 or 3 days you should stick with clear liquids like Gatorade. Avoid fatty foods. The Compazine is taken every 6 hours for nausea. Follow-up this week with a primary care physician. You will get a 5 day work excuse. Med/Other Pt SpecificInfo: Prescription(s) given Scripts Prochlorperazine Maleate (Prochlorperazine Maleate) 10 Mg Tab 10 MG PO Q6H Y for NAUSEA OR VOMITING, #30 TAB 0 Refills Prov: Quincy Nunes MD 11/18/17 Disposition: 01 DISCHARGE HOME Condition: Stable Quincy Nunes MD Nov 18, 2017 02:49
[2017-11-18] MEDS: SODIUM CHLOR 0.9% 1000 ML INJ 1,000 ML IV SCH ×2 (02:54→03:30)
[2017-11-18] MEDS ORDERED: PROC10TA PO (04:33)
[2017-11-18 05:06] VITALS: BP 152/74
[2017-11-18 05:08] LABS: BILIRUBIN, URINE NEG (NEG); BLOOD, URINE NEG (NEG); GLUCOSE,URINE NEG (NEG); KETONE, URINE NEG (NEG); NITRITE,URINE NEG (NEG); URINE LEUKOCYTE ESTERASE NEG (NEG)
[2017-11-18 05:22] LABS: URINE COLOR YELLOW (YELLW/STRAW)
[2017-11-18 05:23] LABS: MUCUS URINE MANY /lpf (OCC)
[2017-11-18 05:24] LABS: WBC, URINE 0-2 /hpf (0-5)
== END 2017-11-18 05:00 | disposition home or self-care (01) ==
LOC: PHED 22:03
DX: K52.9 Noninfective gastroenteritis and colitis, unspecified (principal); I10 Essential (primary) hypertension; J45.909 Unspecified asthma, uncomplicated
CPT/HCPCS: 80053; 81001; 85025; 96360; 99284; J7030

== ENCOUNTER 2017-12-16 12:09 | Emergency (ER) | payer MEDICAID ==
[~2017-12-16] VITALS: Ht 172.7 cm; Wt 98.1 kg
[~2017-12-16 12:09] MED LIST changes: -*morphine SULFATE 8 MG/ML PERIprocedure ONLY ONE; -BUPIVACAINE/EPINEPHRINE 0.5% 50 ML VIAL ONE; -CHLORHEXIDINE GLUCONATE 2 % 1 PACK (2 CLOTHS) TOPICAL PRN; -DEXAMETHASONE SOD PHOS 4 MG/ML VIAL IV ONE; -DO NOT ADM ANY ANTICOAGULANT DRUGS PRN; -GLYCOPYRROLATE 1 MG/5 ML SYRINGE IV PUSH ONE; -INSULIN HUMAN REGULAR 1,000 UNITS/10 ML VIAL SQ PRN; -KETOROLAC TROMETHAMINE 30 MG/ML (IVP) VIAL IV PUSH ONE; -LACTATED RINGER'S 1000 ML IV PRN; -LIDOCAINE HCL 1% PF 5 ML AMPULE OTHER ONE; -METOPROLOL TARTRATE 25 MG TAB PO PRN; -MIDAZOLAM HCL 2 MG/2 ML VIAL IV ONE; -MORPHINE SULFATE 4 MG/ML INJ ONE; -NEOSTIGMINE 3 MG/3 ML SYR IV ONE; -ONDANSETRON HCL 4 MG/2 ML VIAL IV PUSH ONE; -ONDANSETRON HCL 4 MG/2 ML VIAL IV PUSH PRN; +PEPT262S PO; -POVIDONE IODINE 5% (ANTISEPSIS KIT) 4 APPLICATIONS EACH NARE PRN; +PROC10TA PO; -PROPOFOL 200 MG/20 ML AMP IV ONE; -ROCURONIUM INJ 50 MG/5 ML SYRINGE IV PUSH ONE; +SODITAB PO; -SODIUM CHLORID 0.9% 500 ML IV PRN; -ceFAZolin 2 GM PREMIX 50 ML IV SCH; -oxyCODONE/ACETAMINOPHEN 10 MG/325 MG TAB PO PRN; -oxyCODONE/ACETAMINOPHEN 5 MG/325 MG TAB PO PRN
[2017-12-16 12:11] VITALS: BP 139/64; PULSE 77; RESP 18; TEMP 98.4; O2SAT 98
--- NOTE | 2017-12-16 12:54 | PD ---
HPI Chief Complaint: Headache Time Seen by Provider: 12:36 Travel History International Travel<30 days: No Contact w/Intl Traveler<30days: No Traveled to known affect area: No History of Present Illness HPI This 32-year-old female says she's been having headache for the last 8 days. The headache she is having is diffuse. She has had some nausea with the headache and she vomited once this morning. She does not have any numbness or tingling. She says she has not had headaches since before. There has not been fever or chills. She does have photophobia. She had a baby 3 months ago [facility] Past Medical History Asthma: Yes Cardiovascular Problems: Yes Diminished Hearing: No Hypertension: Yes Respiratory: Yes (ASTHMA) ?: Not : 6 Para: 4 Miscarriage: 0 : 2 Past Surgical History Abdominal Surgery: Yes (APPENDECTOMY) Appendectomy: Yes Social History Alcohol Use: No Tobacco Use: No Substance Use: No Allergies-Medications (Allergen,Severity, Reaction): Coded Allergies: No Known Allergies (Unverified Adverse Reaction, Unknown, 12/16/17) Reported Meds & Prescriptions Reported Meds & Active Scripts Active No Active Prescriptions or Reported Medications Review of Systems General / Constitutional: No: Fever, Chills Eyes: Positive: Photophobia, No: Diploplia HENT: Positive: Headaches Cardiovascular: No: Chest Pain or Discomfort, Palpitations Respiratory: No: Cough, Shortness of Breath Gastrointestinal: No: Vomiting, Diarrhea Genitourinary: Positive: Vaginal Bleeding, No: Urgency, Frequency Musculoskeletal: Positive: Myalgias Skin: No Rash, No Itching Neurologic: No: Weakness, Dizziness Psychiatric: No: Anxiety Endocrine: No: Heat Intolerance, Cold Intolerance Hematologic/Lymphatic: No: Easy Bruising Physical Exam Narrative GENERAL: Well-developed female SKIN: Focused skin assessment warm/dry. HEAD: Atraumatic. Normocephalic. EYES: Pupils equal and round. No scleral icterus. No injection or drainage. ENT: No nasal bleeding or discharge. Mucous membranes pink and moist. NECK: Trachea midline. No JVD. Neck is supple CARDIOVASCULAR: Regular rate and rhythm. No murmur appreciated. RESPIRATORY: No accessory muscle use. Clear to auscultation. Breath sounds equal bilaterally. GASTROINTESTINAL: Abdomen soft, non-tender, nondistended. Hepatic and splenic margins not palpable. MUSCULOSKELETAL: No obvious deformities. No clubbing. No cyanosis. No edema. NEUROLOGICAL: Awake and alert. No obvious cranial nerve deficits. Motor grossly within normal limits. Normal speech. PSYCHIATRIC: Appropriate mood and affect; insight and judgment normal. Data Data Last Documented VS Vital Signs Date Time Temp Pulse Resp B/P (MAP) Pulse Ox O2 Delivery O2 Flow Rate FiO2 12/16/17 12:11 98.4 77 18 139/64 (89) 98 Orders Orders Complete Blood Count With Diff (12/16/17 12:50) Basic Metabolic Panel (Bmp) (12/16/17 12:50) Ct Brain W/O Iv Contrast(Rout) (12/16/17 12:50) Sodium Chlor 0.9% 1000 Ml Inj (Ns 1000 M (12/16/17 13:00) Prochlorperazine Inj (Compazine Inj) (12/16/17 13:00) Ketorolac Inj (Toradol Inj) (12/16/17 13:00) Labs Laboratory Tests Test 12/16/17 13:05 White Blood Count 7.3 TH/MM3 Red Blood Count 4.73 MIL/MM3 Hemoglobin 8.1 GM/DL Hematocrit 28.3 % Mean Corpuscular Volume 59.7 FL Mean Corpuscular Hemoglobin 17.0 PG Mean Corpuscular Hemoglobin Concent 28.5 % Red Cell Distribution Width 17.6 % Platelet Count 365 TH/MM3 Mean Platelet Volume 7.7 FL Neutrophils (%) (Auto) 70.1 % Lymphocytes (%) (Auto) 20.5 % Monocytes (%) (Auto) 5.9 % Eosinophils (%) (Auto) 3.0 % Basophils (%) (Auto) 0.5 % Neutrophils # (Auto) 5.2 TH/MM3 Lymphocytes # (Auto) 1.5 TH/MM3 Monocytes # (Auto) 0.4 TH/MM3 Eosinophils # (Auto) 0.2 TH/MM3 Basophils # (Auto) 0.0 TH/MM3 CBC Comment AUTO DIFF Differential Comment AUTO DIFF CONFIRMED Ovalocytes 1+ Blood Urea Nitrogen 15 MG/DL Creatinine 0.47 MG/DL Random Glucose 100 MG/DL Calcium Level 8.5 MG/DL Sodium Level 139 MEQ/L Potassium Level 3.7 MEQ/L Chloride Level 106 MEQ/L Carbon Dioxide Level 26.8 MEQ/L Anion Gap 6 MEQ/L Estimat Glomerular Filtration Rate 153 ML/MIN [facility] Medical Decision Making Medical Screen Exam Complete: Yes Emergency Medical Condition: Yes Medical Record Reviewed: Yes Differential Diagnosis Differential includes migraine headache, tension headache space-occupying lesion Narrative Course CT of the brain is negative. Her hemoglobin is 8 with hypOchromic microcytic indices consistent with iron deficiency. She'll be started on supplemental iron Diagnosis Primary Impression: Anemia Scripts Ferrous Sulfate (Ferrous Sulfate) 325 Mg (65 Mg Iron) Tablet 325 MG PO BIDPC for Nutritional Supplement, #60 TAB 0 Refills Prov: Cody Yousif MD 12/16/17 Disposition: 01 DISCHARGE HOME Condition: Stable Cody oYusif MD Dec 16, 2017 12:54
[2017-12-16] MEDS ORDERED: KETOROLAC TROMETHAMINE 30 MG/ML (IVP) VIAL IV PUSH ONE (13:00)
[2017-12-16] MEDS ORDERED: PROCHLORPERAZINE INJ 10 MG/2 ML VIAL IV PUSH ONE (13:00)
[2017-12-16] MEDS ORDERED: SODIUM CHLOR 0.9% 1000 ML INJ 1,000 ML IV ONE (13:00)
[2017-12-16 13:21] LABS: AUTOMATED NEUTROPHIL # 5.2 TH/MM3 (1.8-7.7); BASOPHIL % 0.5 % (0.0-2.0); EOSINOPHIL # 0.2 TH/MM3 (0-0.4); HEMATOCRIT 28.3 % (35.0-46.0); HEMOGLOBIN 8.1 GM/DL (11.6-15.3); LYMPH % 20.5 % (9.0-44.0); LYMPHOCYTE # 1.5 TH/MM3 (1.0-4.8); MEAN CELL VOLUME 59.7 FL (80.0-100.0); MEAN PLATELET VOLUME 7.7 FL (7.0-11.0); MONO % 5.9 % (0.0-8.0); MONOCYTE # 0.4 TH/MM3 (0-0.9); NEUT % 70.1 % (16.0-70.0); PLATELET COUNT 365 TH/MM3 (150-450); RED BLOOD COUNT 4.73 MIL/MM3 (4.00-5.30); RED CELL DISTRIBUTION WIDTH 17.6 % (11.6-17.2); WHITE BLOOD COUNT 7.3 TH/MM3 (4.0-11.0)
[2017-12-16 13:27] LABS: MEAN CORPUSCULAR HGB CONC 28.5 % (32.0-36.0)
[2017-12-16 13:28] LABS: BICARBONATE 26.8 MEQ/L (21.0-32.0); CALCIUM 8.5 MG/DL (8.5-10.1)
[2017-12-16 13:32] LABS: CREATININE 0.47 MG/DL (0.50-1.00)
--- NOTE | 2017-12-16 13:55 | RADRPT ---
EXAM DATE/TIME: 12/16/2017 13:28 [facility] COMPARISON: No previous studies available for comparison. INDICATIONS : Diffuse headache for one week. RADIATION DOSE: 58.57 CTDIvol (mGy) ; Patient motion MEDICAL HISTORY : Hypertension. SURGICAL HISTORY : Appendectomy. ENCOUNTER: Initial ACUITY: 1 week PAIN SCALE: 5/10 LOCATION: Bilateral cranial TECHNIQUE: Multiple contiguous axial images were obtained of the head. Using automated exposure control and adj ustment of the mA and/or kV according to patient size, radiation dose was kept as low as reasonably a chievable to obtain optimal diagnostic quality images. DICOM format image data is available electro nically for review and comparison. FINDINGS: CEREBRUM: The ventricles are normal for age. No evidence of midline shift, mass lesion, hemorrhage or acute in farction. No extra-axial fluid collections are seen. POSTERIOR FOSSA: The cerebellum and brainstem are intact. The 4th ventricle is midline. The cerebellopontine angle i s unremarkable. EXTRACRANIAL: The visualized portion of the orbits is intact. SKULL: The calvaria is intact. No evidence of skull fracture. CONCLUSION: 1. No acute intracranial abnormalities. Garret Alcantara MD on December 16, 2017 at 13:51 Board Certified Radiologist. This report was verified electronically.
[2017-12-16 14:08] LABS: OVALOCYTES 1+ (NORMAL)
[2017-12-16 15:00] VITALS: BP 128/78; PULSE 80; RESP 18; O2SAT 99
[2017-12-16] MEDS ORDERED: FERR325T18 PO (15:04)
== END 2017-12-16 15:25 | disposition home or self-care (01) ==
LOC: PHED 12:09
DX: D64.9 Anemia, unspecified (principal)
CPT/HCPCS: 70450; 80048; 85025; 96361; 96374; 96375; 99284; J0780; J1885; J7030